=== PATIENT | male | born 1945 | race Caucasian/White ===

== ENCOUNTER 2017-02-26 20:40 | Emergency (ER) | payer MEDICARE, OTHER ==
--- NOTE | 2017-02-26 22:01 | RAD ---
Indication: Facial injury. CT of the facial bones was obtained in the axial plane. Sagittal and coronal reconstructed images were obtained. The mandible demonstrates no fracture. The visualized cervical spine is unremarkable. Zygomatic arch and pterygoid plates are intact without evidence of fracture. Mucosal thickening of the maxillary sinuses without evidence of fracture. Chronic sinusitis is noted. Ethmoid air cells are well aerated. Nasal arch is otherwise unremarkable. Pterygoid plates and orbits are intact. The temporomandibular joints demonstrates the mandibular condyles to be in the open position over the articular tubercle. IMPRESSION: No fracture of the facial bones is identified. The temporal mandibular joints are in correlation with jaw mobility is suggested. An open mouth position.
--- NOTE | 2017-02-26 22:04 | RAD ---
Indication: Facial laceration, headache. CT of the brain was performed without IV contrast. Ventricular structures are midline. No midline shift is noted. Central and cortical atrophy is noted. There is no evidence of intracranial mass or hemorrhage. No other high or low density lesions are identified. Mastoid air cells and paranasal sinuses are unremarkable. When compared to previous exam of October 27, 2012 no significant change is noted. IMPRESSION: Involutional changes are noted with no evidence of intracranial mass or hemorrhage.
--- NOTE | 2017-02-26 22:07 | RAD ---
Indication: Fall, neck injury. CT of the cervical spine was obtained in the axial plane. Sagittal and coronal reconstructed images were obtained. The skull base and neck shows no fracture. C1-C2 articulation demonstrates degenerative changes. No fracture of C1 or C2 is identified. At C2-C3 and C3-C4 there is some minimal disc degenerative disc disease at C3-C4. No fracture is identified. No central foraminal stenosis is noted. At C4-C5 spondylitic ridge flattens the thecal sac. No definite fracture is identified. At C5-C6 spondylitic ridge flattens the thecal sac. Bilateral uncovertebral joint hypertrophy narrows both foramen. No central or foraminal stenosis is noted. At C6-C7 disc space loss with degenerative disc disease is noted. No fracture is identified. At C7-T1 degenerative disc disease is noted. IMPRESSION: MULTILEVEL DEGENERATIVE DISC DISEASE IS NOTED. NO DEFINITE FRACTURE IS IDENTIFIED. EVALUATION OF THE LOWER CERVICAL VERTEBRA IS SOMEWHAT LIMITED DUE TO BODY HABITUS.
[2017-02-26 22:10] LABS: Hematocrit 39 % (42-52); Hemoglobin 13.2 g/dl (14.0-18.0); Mean Corpuscular HGB Conc 34 g/dl (31-36); Mean Corpuscular Hemoglobin 31 pg (27-31); Mean Corpuscular Volume 90 fL (80-94); Mean Platelet Volume 8 um3 (7.4-10.4); Red Blood Count 4.32 10^6/ul (4.0-5.4); Red Cell Distribution Width 14 % (10.5-15); White Blood Count 7.9 10^3/ul (3.5-10.8)
[2017-02-26 22:37] LABS: Albumin 3.2 g/dL (3.2-5.2); Calcium 9.6 mg/dL (8.6-10.3); EGFR African American 89.5 (>60); EGFR Non-African American 69.6 (>60); Globulin 3.4 g/dL (2-4); Potassium 4.4 mmol/L (3.5-5.0); Total Bilirubin 0.4 mg/dL (0.2-1.0); Total Protein 6.6 g/dL (6.4-8.9)
[2017-02-26 22:48] LABS: TSH (Thyroid Stimulating Horm) 4.1 mcIU/mL (0.34-5.60)
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
[2017-02-26 23:39] VITALS: BP 153/65
== END 2017-02-27 00:19 | disposition home or self-care (01) ==
LOC: ED 20:40
DX: S01.21XA Laceration without foreign body of nose, initial encounter (principal); Y09 Assault by unspecified means; Y92.129 Unspecified place in nursing home as the place of occurrence of the external cause; Y99.8 Other external cause status
CPT/HCPCS: 12011; 36415; 70450; 70486; 72125; 80053; 83605; 83735; 84443; 85025; 93005; 99284

== ENCOUNTER 2018-10-16 09:33 | Inpatient (IN) | payer MEDICARE, MEDICAID ==
[2018-10-16] MEDS ORDERED: NS 0.9% 1000 ML** 1,000 ML IV.FLUID IV ONE (09:45)
[2018-10-16] MEDS ORDERED: cefTRIAXone(*) 2 GM in NS 0.9% 100 ML* 100 ML IVPB ONE (09:59)
[2018-10-16] MEDS ORDERED: cefTRIAXone(*) 2 GM ADDV.VIAL IVPB ONE (10:06)
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
[2018-10-16 10:26] LABS: Hematocrit 35 % (42-52); Hemoglobin 11.3 g/dl (14.0-18.0); Mean Corpuscular HGB Conc 33 g/dl (31-36); Mean Corpuscular Hemoglobin 31 pg (27-31); Mean Corpuscular Volume 93 fL (80-94); Mean Platelet Volume 8.3 fL (7.4-10.4); Platelet Count 218 10^3/ul (150-450); Red Blood Count 3.72 10^6/ul (4.00-5.40); Red Cell Distribution Width 15 % (10.5-15); White Blood Count 14.8 10^3/ul (3.5-10.8)
[2018-10-16 10:42] LABS: Activated Partial Thrombo Time 25.3 seconds (26.0-36.3); INR 1.02 (0.77-1.02)
[2018-10-16 10:47] LABS: Troponin I 0.05 ng/mL (<0.04)
[2018-10-16 10:49] LABS: Albumin 3.1 g/dL (3.2-5.2); C Reactive Protein 89.52 mg/L (<8.01); Calcium 9.3 mg/dL (8.6-10.3); EGFR African American 23.1 (>60); EGFR Non-African American 19.1 (>60); Globulin 3.1 g/dL (2-4); Total Bilirubin 0.3 mg/dL (0.2-1.0); Total Protein 6.2 g/dL (6.4-8.9)
[2018-10-16 10:53] LABS: Potassium 6.3 mmol/L (3.5-5.0)
[2018-10-16 11:02] LABS: ABS Basophils 0.1 10^3/ul (0-0.2); ABS Eosinophils 0 10^3/ul (0-0.6); ABS Lymphocytes 1.2 10^3/ul (1.0-4.8); ABS Neutrophils 11.5 10^3/ul (1.5-7.7); ABS Nucleated RBC 0 10^3/ul; Eosinophil % 0.3 %; Lymphocyte % 8.2 %; Nucleated Red Blood Cells % 0
[2018-10-16] MEDS ORDERED: DOXYcycline IV* 100 MG in NS 0.9% 250 ML* 250 ML IVPB ONE (11:39)
[2018-10-16] MEDS ORDERED: Dextrose 50% Syringe 50 ML* 25 GM/50 ML SYRINGE IV PUSH ONE (11:51)
[2018-10-16] MEDS ORDERED: Insulin REGULAR(*) 1 UNITS UNIT IV PUSH ONE (11:51)
[2018-10-16] MEDS ORDERED: Patiromer POWDER* 8.4 GM PAK PO ONE ×2 (11:53→12:02)
[2018-10-16] MEDS ORDERED: NS 0.9% 250 ML* 250 ML ONE (11:57)
[2018-10-16] MEDS ORDERED: Benzonatate CAP* 100 MG PO PRN (11:59)
[2018-10-16] MEDS ORDERED: Ondansetron INJ* 2 MG/ML VIAL IV PRN (11:59)
[2018-10-16] MEDS ORDERED: Dextrose 50% Syringe 50 ML* 25 GM/50 ML SYRINGE ONE (12:02)
[2018-10-16] MEDS ORDERED: Insulin REGULAR(*) 1 UNITS UNIT ONE (12:02)
[2018-10-16] MEDS ORDERED: Bisacodyl SUPP* 10 MG SUPP PR PRN (12:03)
[2018-10-16] MEDS ORDERED: MELATONIN 5 MG PO PRN (12:03)
[2018-10-16] MEDS ORDERED: Albuterol/Ipratropium NEB.SOL* Albuterol 2.5 MG/Ipratropium 0.5 MG 3 ML INH PRN (12:20)
[2018-10-16 13:53] LABS: Troponin I 0.04 ng/mL (<0.04)
[2018-10-16] MEDS: Enoxaparin(*) 30 MG/0.3 ML SYR SUBCUT SCH (14:28)
[2018-10-16] MEDS: NS 0.9% 1000 ML** 1,000 ML IV SCH ×4 (14:31→23:07)
[2018-10-16 16:01] LABS: BUN/Creatinine Ratio 15.7 (8-20); Calcium 8.7 mg/dL (8.6-10.3); EGFR African American 30.2 (>60); Troponin I 0.03 ng/mL (<0.04)
[2018-10-16 16:02] LABS: Potassium 5.2 mmol/L (3.5-5.0)
[2018-10-16] MEDS: Acetaminophen TAB* 325 MG PO PRN (16:08)
[2018-10-16 17:11] LABS: Urine Appearance Cloudy; Urine Bacteria Absent (Absent); Urine Bilirubin Negative (Negative); Urine Blood 3+ (Negative); Urine Glucose 1+(50 mg/dL) (Negative); Urine Ketones Negative (Negative); Urine Nitrite Negative (Negative); Urine Protein 2+(100 mg/dL) (Negative); Urine Red Blood Cell 3+(>10/hpf) (Absent); Urine Specific Gravity 1.017 (1.010-1.030); Urine Squamous Epithelial Cell Present (Absent); Urine Urobilinogen Negative (Negative); Urine White Blood Cell 3+(>20/hpf) (Absent)
[2018-10-16 17:14] LABS: Urine Color Red
--- NOTE | 2018-10-16 17:47 | HP ---
CC: Shanna Sharif DO; [facility] * ADMISSION HISTORY AND PHYSICAL: DATE OF ADMISSION: 10/16/18 PRIMARY CARE PROVIDER: Shanna Sharif DO. MY ATTENDING WHILE IN THE HOSPITAL: Dr. Wilfrid Munoz.* (DICTATED BY CECILE DISLA) CHIEF COMPLAINT: Unresponsiveness. HISTORY OF PRESENT ILLNESS: Mr. Yee is a 73-year-old male, resident of [facility], who until 2 days ago was in his normal state of health when he began to yesterday call out more. He was sent to the emergency department for altered mental status. During that time, he was not making any urine and was unable to have a Kelly catheter placed. The bladder scan did not show a large amount of urinary retention and the patient was discharged back to [facility] due to his MOLST recommending limited medical intervention. Patient also had a large amount of blood in his urine at [facility] which was part of the reason he was sent to the hospital. Patient had also been noted per [facility] documentation to have been eating less for several days and at that time, he was diagnosed with upper respiratory infection. His oxygen saturation was good on room air. Patient on 10/16/18 was found to be unresponsive and sent back into the emergency department. In the emergency department, he was found to have a significantly altered lung exam with rhonchi throughout. Patient's blood pressure was low, though he was not tachycardic. Patient was requiring 4 L of oxygen initially, but was saturating well on this amount. Patient was still unable to have a Kelly catheter placed. Patient was given a fluid bolus and ceftriaxone. Patient then was able to wake up and become more oriented. Patient stated that he did not have any pain. No shortness of breath, chest pain, abdominal pain, or diarrhea. Patient states that his penis was sore from repeated urinary catheter placements. Patient's MOLST was discussed with his daughter and she said that they would like intervention. We were asked to evaluate the patient for admission to the hospital due to acute kidney injury, hypokalemia, and sepsis of unknown origin; likely urinary tract related. PAST MEDICAL HISTORY: Dementia, diabetes mellitus type 2; insulin dependent, CHF; unknown ejection fraction, hypertension, bipolar disorder, factor V Leiden with 2 PEs; on chronic anticoagulation, IVC filter in place, prostate cancer; status post chemotherapy. MEDICATIONS: As per the [facility] records: 1. Depakote 500 mg p.o. daily. 2. Tylenol 650 mg p.o. q.4 hours as needed. 3. Dulcolax 10 mg p.o. [place] daily as needed. 4. Bupropion 150 mg p.o. daily. 5. Rivaroxaban 20 mg p.o. q.p.m. 6. Vitamin D3 at 2000 units p.o. daily. 7. Micatin 1 application topical b.i.d., as needed. 8. Docusate 2 tablets p.o. daily as needed. 9. Risperdal 2 mg p.o. b.i.d. 10. Potassium chloride 20 mEq p.o. daily. 11. Nystatin 1 application topical b.i.d. 12. Magnesium hydroxide 30 mL p.o. daily as needed. 13. Metoprolol succinate 50 mg p.o. at bedtime. 14. Melatonin 5 mg p.o. at bedtime as needed. 15. Insulin glargine 12 units subcutaneous q.a.m. 16. Lactase 5000 units p.o. q.a.m. 17. Guaifenesin 600 mg p.o. b.i.d. as needed. 18. Hydrocortisone 1 application topical q.8 hours as needed. 19. Furosemide 40 mg p.o. daily. 20. Divalproex 75 mg p.o. b.i.d. 21. Lidocaine patch 1 application daily. 22. Selenium sulfide 1% topical on . 23. Tylenol 1000 mg p.o. b.i.d. as needed. 24. Pregabalin 25 mg p.o. at bedtime. ALLERGIES: Banana, TEGRETOL, ERYTHROMYCIN, GABAPENTIN, GEMFIBROZIL, lactose, LEVOFLOXACIN, MEMANTINE, TERAZOSIN, TOPIRAMATE. FAMILY HISTORY: From previous documentation, the patient's mother had dementia and diabetes. SOCIAL HISTORY: Patient previously denied alcohol, tobacco, or drug abuse. 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 Has daughters who are surrogate decision makers. REVIEW OF SYSTEMS: A 14-point review of systems was reviewed with the patient and though he is limited, they were all negative, except as above in the HPI. PHYSICAL EXAMINATION GENERAL: Patient is a 73-year-old male who appears stated age, sitting comfortably on bed, in no acute distress. VITAL SIGNS: At the time of evaluation, temperature 97.8, pulse rate 78, respiratory rate 16, oxygen saturation 100% on 4 L, blood pressure 140/100. HEENT: Head: Normocephalic, atraumatic. Sclerae anicteric. No conjunctival injection. Nasal mucosa moist. Oral mucosa moist. No oropharyngeal erythema, discharge, or exudate. NECK: Supple, nontender. No lymphadenopathy, no carotid bruits auscultated, no JVD. RESPIRATORY: Rhonchi heard throughout the lower bilateral lungs. Slight wheezes heard in the bilateral lower lobes. Patient unable to cooperate with egophony. CARDIAC: Regular rate and rhythm. No clicks, murmurs, gallops, or rubs. Pulses 2+ in the bilateral dorsalis pedis, posterior tibial and radial areas. Trace bilateral lower extremity edema noted. ABDOMEN: Soft, nontender, nondistended. Bowel sounds present, normoactive in all 4 quadrants. No hepatosplenomegaly. No abdominal bruits auscultated. No hepatojugular reflux. GENITOURINARY: No suprapubic or CVA tenderness. NEUROLOGIC: Cranial nerves II throughout XII intact. No focal deficits. Alert , oriented only to self. PSYCHIATRIC: Pleasant and cooperative, occasionally yelling out. SKIN: Clean, dry, and intact. No rash. DIAGNOSTIC STUDIES/LABORATORY DATA: White blood cell count 14.0, hemoglobin 11.3, platelet count 218, INR 1.02, APTT 25.3. Sodium 135, potassium 6.3, chloride 99, carbon dioxide 29, anion gap 7, BUN 45, creatinine 3.21, glucose 218, lactic acid 2.5, calcium 9.3, bilirubin 0.3, AST 14, ALT 6, alkaline phosphatase 55. Troponin I 0.05. CRP 89.52. Protein 6.2, albumin 3.1, globulin 3.1. Studies: Chest x-ray from 10/16/18 read as low lung volumes with bibasilar atelectasis versus consolidation. Electrocardiogram shows normal sinus rhythm, incomplete right bundle-branch block, possible peaked T waves in lead II consistent with previous exam, left axis deviation. QTc of 425, rate of 63. Abdomen and pelvic CT from 10/16/18 read as small bibasilar infiltrates consistent with atelectasis. Mild right hydronephrosis. No renal, ureteral or bladder calculi are seen. No chronic compression fractures of the dorsal lumbar vertebrae. IVC filter in place. Yakov CT from 10/16/18 read as diffuse involutional change, no acute intracranial pathology. ASSESSMENT AND PLAN: Impression: Mr. Yee is a 73-year-old male with past medical history significant for advanced dementia, diabetes mellitus type 2, history of congestive heart failure, pulmonary embolisms, and prostate cancer who presents to the emergency department obtunded, but responded in the emergency department to fluids and antibiotics. We were unable to get a Kelly catheter on this patient at this time. Patient will be admitted to the hospital for acute kidney injury and management of sepsis of presumed urological origin. 1. Sepsis. Patient met sepsis criteria on admission with elevated white blood cell count and low blood pressure. Patient did not have any tachycardia. Patient has presumed urinary source. Patient was given broad-spectrum antibiotic coverage to cover both urinary and respiratory pathogens with ceftriaxone and doxycycline. Patient was given normal saline bolus and his blood pressure resolved. 2. Elevated lactic acid. This will be repeated in 4 hours. Patient's family is not interested in vasopressors and patient will be admitted to for limited medical interventions. Sputum culture will attempt to be obtained, as will urine culture. Chest x-ray showed consolidation. Blood cultures are pending. 3. Acte kidney injury. Patient's creatinine went from his baseline around 1 to 3.21. It is unclear what the cause of this is. Patient does not appear to be retaining urine significantly, though they are unable to get a Kelly catheter. This patient has mild hydronephrosis. A Kelly catheter will be placed with Urology. Patient will be given fluids. Patient has been [facility] less in the [facility] and is likely dehydrated, though he does appear euvolemic on exam. We will repeat a BNP in 6 hours. 4. Hyperkalemia. The likely cause of this is obstruction versus prerenal acute kidney injury. Given patient is likely dehydrated, we will not treat with Lasix at this time. We will fluid expand, give insulin and glucose. Patient also is wheezing and will be given albuterol inhalers, but not a full dose given patient's elevated troponin. 5. Diabetes mellitus. Patient is on Lantus and sliding scale insulin at home. Patient was given insulin at this time. Patient will be started on sliding scale insulin and decrease dose of Lantus at home. 6. Congestive heart failure. Will use SWAT for patient's fluid status closely with strict input and outputs and daily weights. Patient does not appear to be overloaded now. 7. History of pulmonary embolism x2. Patient has an IVC filter. Patient will have his Xarelto held as it is not able to be renally dosed at his current renal function. 8. DVT prophylaxis. Patient will have Lovenox at renal doses. 9. Bipolar disorder. Continue Depakote and Risperdal when the time comes. Valproic acid level is pending. 10. Code status. Patient will be DNR/DNI. DISPOSITION: The patient is admitted to [address] [place] [address]. TIME SPENT: Approximately 75 minutes were spent on admission of this patient, 30% of which was spent [id number] with the patient, obtaining history and physical and discussing treatment plan. Plan was discussed with my attending, Dr. Wilfrid Munoz, and he is in agreement. CECILE DISLA [id number]/[facility] #: [id number] MTDMathew
[2018-10-16] MEDS ORDERED: NS 0.9% 1000 ML** 1,000 ML IV ONE ×2 (18:02→20:18)
[2018-10-16 18:17] LABS: Hematocrit 28 % (42-52); Hemoglobin 9.1 g/dl (14.0-18.0); Mean Corpuscular HGB Conc 33 g/dl (31-36); Mean Corpuscular Hemoglobin 31 pg (27-31); Mean Corpuscular Volume 93 fL (80-94); Mean Platelet Volume 8.4 fL (7.4-10.4); Platelet Count 161 10^3/ul (150-450); Red Blood Count 2.95 10^6/ul (4.00-5.40); Red Cell Distribution Width 14 % (10.5-15); White Blood Count 11.5 10^3/ul (3.5-10.8)
[2018-10-16 18:22] LABS: ABS Basophils 0.1 10^3/ul (0-0.2); ABS Eosinophils 0 10^3/ul (0-0.6); ABS Monocytes 1.7 10^3/ul (0-0.8); ABS Neutrophils 8.7 10^3/ul (1.5-7.7); ABS Nucleated RBC 0 10^3/ul; Eosinophil % 0.1 %; Lymphocyte % 9.1 %; Nucleated Red Blood Cells % 0
[2018-10-16 18:33] LABS: BUN/Creatinine Ratio 17.2 (8-20); Calcium 8.2 mg/dL (8.6-10.3); EGFR African American 31.7 (>60); EGFR Non-African American 26.2 (>60)
[2018-10-16 18:40] LABS: Potassium 5.3 mmol/L (3.5-5.0)
--- NOTE | 2018-10-16 19:37 | CONS ---
CONSULTATION NOTE: DATE OF CONSULT: 10/16/18. PROCEDURES: 1. Urethral dilation. 2. Attempt at placement of a urethral catheter. HISTORY OF PRESENT ILLNESS: I was asked by the emergency room and the hospitalist service to see Mr. Yee, a 73-year-old white male who is a resident at [facility] and who was brought into the emergency room because of weakness and poor food and liquid intake. I had seen Mr. Yee in the past with his last visit to my office about 5 years ago. He had history of prostate carcinoma which was treated with radiation therapy. I had last seen him in June 2013 when he was noted to have gross hematuria. At that time, he underwent a workup and his kidneys looked normal. 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 Bladder biopsies were benign. The patient had been managed [facility] the [facility] with on and off catheters. When he was brought into the emergency room today, he was noted to be in renal failure. He had a noncontrast CT of the abdomen and pelvis which showed mild left hydronephrosis but there were no calculi. The bladder was not distended but there was thickening of the bladder wall and there was suggestion of clots within the bladder. Attempt at placement of a Kelly catheter by the nursing staff in the emergency room was not successful and urology consultation was obtained. The patient has advanced dementia. He has also multiple medical problems outlined in his history and physical. On urological examination, his bladder did not feel distended. External genitalia were normal. He was demented and could not respond to questions. I tried to place a 16 Coude catheter but was not successful because of obstruction at the level of the posterior urethra. I tried to dilate the stricture starting with 12-Namibian stiff Coude tip catheters but that was not successful with the catheter coiling proximal to the stricture. I also tried to place a 12-Namibian Kelly catheter and also that was not successful. A bladder scan was performed and the bladder volume was about 100 cc. IMPRESSION: Tight urethral strictures, most likely secondary to radiation therapy for prostate carcinoma. PLAN: Ideally, the patient should be taken to the operating room for cystoscopy , internal urethrotomy and catheter placement. The patient; however, is in poor medical condition and is not a candidate for anesthesia, and his family, according to the hospitalist, does not want to proceed with any aggressive measures. The other option will be placement of a percutaneous suprapubic catheter by Interventional Radiology. It might not work if he has clots in his bladder as the clots will not drain through the small suprapubic catheter. I will await the feedback from the hospitalist service and from the family, if they want me to proceed with the cystoscopy in the operating room. In the interim, he will be managed conservatively. [id number]/[facility] #: [id number] SHAGUFTA
[2018-10-16] MEDS: Divalproex DR TAB(*) 250 MG PO SCH (20:22)
[2018-10-16] MEDS: guaiFENesin ER TAB 600 MG PO SCH (20:23)
[2018-10-16] MEDS: Metoprolol Succinate XL TAB* 25 MG PO SCH (20:23)
[2018-10-16] MEDS: risperiDONE TAB* 1 MG PO SCH (20:24)
--- NOTE | 2018-10-16 21:22 | PN ---
Hospitalist Progress Note Date of Service: 10/16/18 CAT Called at 1800 for hypotension. Fluid bolus ordered. Reaffirmed with daughter that no aggressive measures were desired. Specifically no vasopressors or NIPPV. Reaffirmed DNR/DNI. Palliative consult entered. Fluid bolus ordered. Continue Antibiotics pre family's wishes.
[2018-10-16] MEDS ORDERED: Atropine 1% (ORAL/SL)* 15 ML BTL SL PRN (21:55)
[2018-10-16] MEDS: DOXYcycline IV* 100 MG in NS 0.9% 250 ML* 250 ML IVPB SCH (23:02)
[2018-10-17] MEDS: NS 0.9% 1000 ML** 1,000 ML IV SCH ×2 (03:10→05:19)
[2018-10-17 06:08] LABS: ABS Basophils 0.1 10^3/ul (0-0.2); ABS Eosinophils 0.1 10^3/ul (0-0.6); ABS Lymphocytes 1.4 10^3/ul (1.0-4.8); ABS Monocytes 1.4 10^3/ul (0-0.8); ABS Neutrophils 6.9 10^3/ul (1.5-7.7); ABS Nucleated RBC 0 10^3/ul; Eosinophil % 0.9 %; Hematocrit 30 % (42-52); Hemoglobin 9.9 g/dl (14.0-18.0); Mean Corpuscular HGB Conc 33 g/dl (31-36); Mean Corpuscular Hemoglobin 32 pg (27-31); Mean Corpuscular Volume 95 fL (80-94); Mean Platelet Volume 8.2 fL (7.4-10.4); Nucleated Red Blood Cells % 0.1; Platelet Count 161 10^3/ul (150-450); Red Blood Count 3.14 10^6/ul (4.00-5.40); Red Cell Distribution Width 15 % (10.5-15); White Blood Count 9.8 10^3/ul (3.5-10.8)
[2018-10-17 06:28] LABS: BUN/Creatinine Ratio 19.4 (8-20); Calcium 8.5 mg/dL (8.6-10.3); EGFR African American 49.7 (>60); EGFR Non-African American 41.1 (>60); Magnesium 1.8 mg/dL (1.9-2.7); Potassium 4.9 mmol/L (3.5-5.0)
[2018-10-17] MEDS: guaiFENesin ER TAB 600 MG PO SCH ×2 (10:20→20:02)
[2018-10-17] MEDS: Divalproex DR TAB(*) 250 MG PO SCH ×2 (10:20→20:02)
[2018-10-17] MEDS: CMCS:Lactase Enzyme (NF) 3,000 UNIT TAB PO SCH (10:20)
[2018-10-17] MEDS: risperiDONE TAB* 1 MG PO SCH ×2 (10:21→20:03)
[2018-10-17] MEDS: Divalproex DR TAB(*) 500 MG PO SCH (10:21)
[2018-10-17] MEDS: Insulin GLARGINE(*) 1 UNITS UNIT SUBCUT SCH (10:56)
[2018-10-17] MEDS: Acetaminophen TAB* 325 MG PO PRN (11:03)
[2018-10-17] MEDS ORDERED: Magnesium Sulfate 2 GM IV* 2 GM/50 ML BAG IVPB ONE (11:09)
[2018-10-17] MEDS ORDERED: NS 0.9% 1000 ML** 1,000 ML IV SCH (11:12)
--- NOTE | 2018-10-17 11:21 | CONSULT ---
Palliative / Hospice Consult Ordering Provider: Tahir Quiros - PCP [facility] - Subjective Code Status: DNR Advance Directives Location: In Chart MOLST Part A Completed: Yes - on chart MOLST Part E Completed:: Yes - on chart - History or Present Illness History or Present Illness: 73 yo male resident of [facility]() with severe dementia was found to be unresponsive and sent to ER. 2 days earlier he was sent to ER with altered mental status, decreased appetite diagnosed with URI he returned to . Currently he has acute renal injury and sepsis work up. They were unable to insert a villa because of strictures secondary to radiation therapy for his prostate cancer. 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 His daughters are his HCP. CXR shows atelectasis vs consolidation, EXG ST depression, abd ct scan shows IVC filter, enlarged prostate and L hydronephrosis and chronic compression fracture. CT brain no acute pathology, H/H 9.1, 42/2.44 egfr 26.2, Ca+2 8.2, CRP 89.52, tprot 6.2, alb 3.1 lactic acid 2.4. He has lived at since 2012 and if he is not comfort care here family would like him to go back to with hospice. Lab Values: Abnormal Lab Results 10/16/18 10/16/18 10/16/18 10:15 10:15 10:15 WBC 14.8 H RBC 3.72 L Hgb 11.3 L Hct 35 L MCV 93 MCH 31 MCHC 33 RDW 15 Plt Count 218 MPV 8.3 Neut % (Auto) 77.5 Lymph % (Auto) 8.2 [place] % (Auto) 13.5 Eos % (Auto) 0.3 Baso % (Auto) 0.5 Absolute Neuts (auto) 11.5 H Absolute Lymphs (auto) 1.2 Absolute Monos (auto) 2.0 H Absolute Eos (auto) 0 Absolute Basos (auto) 0.1 Absolute Nucleated RBC 0 Nucleated RBC % 0 INR (Anticoag Therapy) 1.02 APTT 25.3 L Sodium 135 Potassium 6.3 H* Chloride 99 L Carbon Dioxide 29 Anion Gap 7 BUN 45 H Creatinine 3.21 H Est GFR ( Amer) 23.1 Est GFR (Non-Af Amer) 19.1 BUN/Creatinine Ratio 14.0 Glucose 218 H POC Glucose (mg/dL) Lactic Acid Calcium 9.3 Magnesium Total Bilirubin 0.30 AST 14 ALT 6 L Alkaline Phosphatase 55 Troponin I 0.05 H* C-Reactive Protein 89.52 H Total Protein 6.2 L Albumin 3.1 L Globulin 3.1 Albumin/Globulin Ratio 1.0 Urine Color Urine Appearance Urine pH Ur Specific Secor Urine Protein Urine Ketones Urine Blood Urine Nitrate Urine Bilirubin Urine Urobilinogen Ur Leukocyte Esterase Urine WBC (Auto) Urine RBC (Auto) Ur Squamous Epith Cells Urine Bacteria Urine Glucose Urine Ascorbic Acid Valproic Acid Cancelled 10/16/18 10/16/18 10/16/18 10:15 13:16 14:10 WBC RBC Hgb Hct MCV MCH MCHC RDW Plt Count MPV Neut % (Auto) Lymph % (Auto) [place] % (Auto) Eos % (Auto) Baso % (Auto) Absolute Neuts (auto) Absolute Lymphs (auto) Absolute Monos (auto) Absolute Eos (auto) Absolute Basos (auto) Absolute Nucleated RBC Nucleated RBC % INR (Anticoag Therapy) APTT Sodium Potassium Chloride Carbon Dioxide Anion Gap BUN Creatinine Est GFR ( Amer) Est GFR (Non-Af Amer) BUN/Creatinine Ratio Glucose POC Glucose (mg/dL) 174 H Lactic Acid 2.5 H* Calcium Magnesium Total Bilirubin AST ALT Alkaline Phosphatase Troponin I 0.04 H* C-Reactive Protein Total Protein Albumin Globulin Albumin/Globulin Ratio Urine Color Urine Appearance Urine pH Ur Specific Secor Urine Protein Urine Ketones Urine Blood Urine Nitrate Urine Bilirubin Urine Urobilinogen Ur Leukocyte Esterase Urine WBC (Auto) Urine RBC (Auto) Ur Squamous Epith Cells Urine Bacteria Urine Glucose Urine Ascorbic Acid Valproic Acid 53.0 10/16/18 10/16/18 10/16/18 14:57 14:58 16:11 WBC RBC Hgb Hct MCV MCH MCHC RDW Plt Count MPV Neut % (Auto) Lymph % (Auto) [place] % (Auto) Eos % (Auto) Baso % (Auto) Absolute Neuts (auto) Absolute Lymphs (auto) Absolute Monos (auto) Absolute Eos (auto) Absolute Basos (auto) Absolute Nucleated RBC Nucleated RBC % INR (Anticoag Therapy) APTT Sodium 138 Potassium 5.2 H Chloride 106 Carbon Dioxide 25 Anion Gap 7 BUN 40 H Creatinine 2.54 H Est GFR ( Amer) 30.2 Est GFR (Non-Af Amer) 25.0 BUN/Creatinine Ratio 15.7 Glucose 146 H POC Glucose (mg/dL) 216 H Lactic Acid 2.4 H* Calcium 8.7 Magnesium Total Bilirubin AST ALT Alkaline Phosphatase Troponin I 0.03 C-Reactive Protein Total Protein Albumin Globulin Albumin/Globulin Ratio Urine Color Urine Appearance Urine pH Ur Specific Secor Urine Protein Urine Ketones Urine Blood Urine Nitrate Urine Bilirubin Urine Urobilinogen Ur Leukocyte Esterase Urine WBC (Auto) Urine RBC (Auto) Ur Squamous Epith Cells Urine Bacteria Urine Glucose Urine Ascorbic Acid Valproic Acid 10/16/18 10/16/18 10/16/18 16:42 17:50 18:12 WBC 11.5 H RBC 2.95 L Hgb 9.1 L Hct 28 L MCV 93 MCH 31 MCHC 33 RDW 14 Plt Count 161 MPV 8.4 Neut % (Auto) 75.5 Lymph % (Auto) 9.1 [place] % (Auto) 14.6 Eos % (Auto) 0.1 Baso % (Auto) 0.7 Absolute Neuts (auto) 8.7 H Absolute Lymphs (auto) 1.0 Absolute Monos (auto) 1.7 H Absolute Eos (auto) 0 Absolute Basos (auto) 0.1 Absolute Nucleated RBC 0 Nucleated RBC % 0 INR (Anticoag Therapy) APTT Sodium Potassium Chloride Carbon Dioxide Anion Gap BUN Creatinine Est GFR ( Amer) Est GFR (Non-Af Amer) BUN/Creatinine Ratio Glucose POC Glucose (mg/dL) 265 H Lactic Acid Calcium Magnesium Total Bilirubin AST ALT Alkaline Phosphatase Troponin I C-Reactive Protein Total Protein Albumin Globulin Albumin/Globulin Ratio Urine Color Red A Urine Appearance Cloudy Urine pH 5.0 Ur Specific Secor 1.017 Urine Protein 2+(100 mg/dl) A Urine Ketones Negative Urine Blood 3+ A Urine Nitrate Negative Urine Bilirubin Negative Urine Urobilinogen Negative Ur Leukocyte Esterase 2+ A Urine WBC (Auto) 3+(>20/hpf) A Urine RBC (Auto) 3+(>10/hpf) A Ur Squamous Epith Cells Present A Urine Bacteria Absent Urine Glucose 1+(50 mg/dl) A Urine Ascorbic Acid * A Valproic Acid 10/16/18 10/16/18 10/17/18 18:12 20:03 05:59 WBC 9.8 RBC 3.14 L Hgb 9.9 L Hct 30 L MCV 95 H MCH 32 H MCHC 33 RDW 15 Plt Count 161 MPV 8.2 Neut % (Auto) 70.1 Lymph % (Auto) 14.0 [place] % (Auto) 14.2 Eos % (Auto) 0.9 Baso % (Auto) 0.8 Absolute Neuts (auto) 6.9 Absolute Lymphs (auto) 1.4 Absolute Monos (auto) 1.4 H Absolute Eos (auto) 0.1 Absolute Basos (auto) 0.1 Absolute Nucleated RBC 0 Nucleated RBC % 0.1 INR (Anticoag Therapy) APTT Sodium 137 Potassium 5.3 H Chloride 107 Carbon Dioxide 23 Anion Gap 7 BUN 42 H Creatinine 2.44 H Est GFR ( Amer) 31.7 Est GFR (Non-Af Amer) 26.2 BUN/Creatinine Ratio 17.2 Glucose 229 H POC Glucose (mg/dL) 172 H Lactic Acid Calcium 8.2 L Magnesium Total Bilirubin AST ALT Alkaline Phosphatase Troponin I C-Reactive Protein Total Protein Albumin Globulin Albumin/Globulin Ratio Urine Color Urine Appearance Urine pH Ur Specific Secor Urine Protein Urine Ketones Urine Blood Urine Nitrate Urine Bilirubin Urine Urobilinogen Ur Leukocyte Esterase Urine WBC (Auto) Urine RBC (Auto) Ur Squamous Epith Cells Urine Bacteria Urine Glucose Urine Ascorbic Acid Valproic Acid 10/17/18 10/17/18 05:59 10:16 WBC RBC Hgb Hct MCV MCH MCHC RDW Plt Count MPV Neut % (Auto) Lymph % (Auto) [place] % (Auto) Eos % (Auto) Baso % (Auto) Absolute Neuts (auto) Absolute Lymphs (auto) Absolute Monos (auto) Absolute Eos (auto) Absolute Basos (auto) Absolute Nucleated RBC Nucleated RBC % INR (Anticoag Therapy) APTT Sodium 140 Potassium 4.9 Chloride 110 Carbon Dioxide 27 Anion Gap 3 BUN 32 H Creatinine 1.65 H Est GFR ( Amer) 49.7 Est GFR (Non-Af Amer) 41.1 BUN/Creatinine Ratio 19.4 Glucose 115 H POC Glucose (mg/dL) 196 H Lactic Acid Calcium 8.5 L Magnesium 1.8 L Total Bilirubin AST ALT Alkaline Phosphatase Troponin I C-Reactive Protein Total Protein Albumin Globulin Albumin/Globulin Ratio Urine Color Urine Appearance Urine pH Ur Specific Secor Urine Protein Urine Ketones Urine Blood Urine Nitrate Urine Bilirubin Urine Urobilinogen Ur Leukocyte Esterase Urine WBC (Auto) Urine RBC (Auto) Ur Squamous Epith Cells Urine Bacteria Urine Glucose Urine Ascorbic Acid Valproic Acid Laboratory Last Values WBC 9.8 10^3/ul (3.5-10.8) 10/17/18 05:59 RBC 3.14 10^6/ul (4.00-5.40) L 10/17/18 05:59 Hgb 9.9 g/dl (14.0-18.0) L 10/17/18 05:59 Hct 30 % (42-52) L 10/17/18 05:59 MCV 95 fL (80-94) H 10/17/18 05:59 MCH 32 pg (27-31) H 10/17/18 05:59 MCHC 33 g/dl (31-36) 10/17/18 05:59 RDW 15 % (10.5-15) 10/17/18 05:59 Plt Count 161 10^3/ul (150-450) 10/17/18 05:59 MPV 8.2 fL (7.4-10.4) 10/17/18 05:59 Neut % (Auto) 70.1 % 10/17/18 05:59 Lymph % (Auto) 14.0 % 10/17/18 05:59 Marinette % (Auto) 14.2 % 10/17/18 05:59 Eos % (Auto) 0.9 % 10/17/18 05:59 Baso % (Auto) 0.8 % 10/17/18 05:59 Absolute Neuts (auto) 6.9 10^3/ul (1.5-7.7) 10/17/18 05:59 Absolute Lymphs (auto) 1.4 10^3/ul (1.0-4.8) 10/17/18 05:59 Absolute Monos (auto) 1.4 10^3/ul (0-0.8) H 10/17/18 05:59 Absolute Eos (auto) 0.1 10^3/ul (0-0.6) 10/17/18 05:59 Absolute Basos (auto) 0.1 10^3/ul (0-0.2) 10/17/18 05:59 Absolute Nucleated RBC 0 10^3/ul 10/17/18 05:59 Nucleated RBC % 0.1 10/17/18 05:59 INR (Anticoag Therapy) 1.02 (0.77-1.02) 10/16/18 10:15 APTT 25.3 seconds (26.0-36.3) L 10/16/18 10:15 Sodium 140 mmol/L (135-145) 10/17/18 05:59 Potassium 4.9 mmol/L (3.5-5.0) 10/17/18 05:59 Chloride 110 mmol/L (101-111) 10/17/18 05:59 Carbon Dioxide 27 mmol/L (22-32) 10/17/18 05:59 Anion Gap 3 mmol/L (2-11) 10/17/18 05:59 BUN 32 mg/dL (6-24) H 10/17/18 05:59 Creatinine 1.65 mg/dL (0.67-1.17) H 10/17/18 05:59 Est GFR ( Amer) 49.7 (>60) 10/17/18 05:59 Est GFR (Non-Af Amer) 41.1 (>60) 10/17/18 05:59 BUN/Creatinine Ratio 19.4 (8-20) 10/17/18 05:59 Glucose 115 mg/dL (70-100) H 10/17/18 05:59 POC Glucose (mg/dL) 196 mg/dL (70-100) H 10/17/18 10:16 Lactic Acid 2.4 mmol/L (0.5-2.0) H* 10/16/18 14:57 Calcium 8.5 mg/dL (8.6-10.3) L 10/17/18 05:59 Magnesium 1.8 mg/dL (1.9-2.7) L 10/17/18 05:59 Total Bilirubin 0.30 mg/dL (0.2-1.0) 10/16/18 10:15 AST 14 U/L (13-39) 10/16/18 10:15 ALT 6 U/L (7-52) L 10/16/18 10:15 Alkaline Phosphatase 55 U/L (34-104) 10/16/18 10:15 Troponin I 0.03 ng/mL (<0.04) 10/16/18 14:58 C-Reactive Protein 89.52 mg/L (<8.01) H 10/16/18 10:15 Total Protein 6.2 g/dL (6.4-8.9) L 10/16/18 10:15 Albumin 3.1 g/dL (3.2-5.2) L 10/16/18 10:15 Globulin 3.1 g/dL (2-4) 10/16/18 10:15 Albumin/Globulin Ratio 1.0 (1-3) 10/16/18 10:15 Urine Color Red A 10/16/18 16:42 Urine Appearance Cloudy 10/16/18 16:42 Urine pH 5.0 (5-9) 10/16/18 16:42 Ur Specific Secor 1.017 (1.010-1.030) 10/16/18 16:42 Urine Protein 2+(100 mg/dl) (Negative) A 10/16/18 16:42 Urine Ketones Negative (Negative) 10/16/18 16:42 Urine Blood 3+ (Negative) A 10/16/18 16:42 Urine Nitrate Negative (Negative) 10/16/18 16:42 Urine Bilirubin Negative (Negative) 10/16/18 16:42 Urine Urobilinogen Negative (Negative) 10/16/18 16:42 Ur Leukocyte Esterase 2+ (Negative) A 10/16/18 16:42 Urine WBC (Auto) 3+(>20/hpf) (Absent) A 10/16/18 16:42 Urine RBC (Auto) 3+(>10/hpf) (Absent) A 10/16/18 16:42 Ur Squamous Epith Cells Present (Absent) A 10/16/18 16:42 Urine Bacteria Absent (Absent) 10/16/18 16:42 Urine Glucose 1+(50 mg/dl) (Negative) A 10/16/18 16:42 Urine Ascorbic Acid * (Negative) A 10/16/18 16:42 Valproic Acid 53.0 mcg/mL (50-100) 10/16/18 13:16 - Objective Active Medications: Acetaminophen (Tylenol Tab*) 650 mg PO Q6H PRN PRN Reason: FEVER/PAIN Last Admin: 10/16/18 16:08 Dose: 650 mg Albuterol/Ipratropium (Duoneb (Albuterol 2.5 Mg/Ipratropium 0.5 Mg)) 1 neb INH Q6H PRN PRN Reason: SOB/WHEEZING Atropine Sulfate (Atropine 1% (Oral/Sl)*) 2 drop SL Q2H PRN PRN Reason: excess oral secretions Last Admin: 10/16/18 22:15 Dose: 2 drop Benzonatate (Tessalon Cap*) 100 mg PO BID PRN PRN Reason: COUGH Bisacodyl (Dulcolax Supp*) 10 mg MA DAILY PRN PRN Reason: CONSTIPATION Bupropion HCl (Wellbutrin Xl *) 150 mg PO DAILY [facility] Divalproex Sodium (Depakote Dr Tab(*)) 750 mg PO BID [facility] Last Admin: 10/17/18 10:20 Dose: 750 mg Divalproex Sodium (Depakote Dr Tab(*)) 500 mg PO DAILY [facility] Last Admin: 10/17/18 10:21 Dose: 500 mg Enoxaparin Sodium (Lovenox(*)) 30 mg SUBCUT Q24H [facility] Last Admin: 10/16/18 14:28 Dose: 30 mg Guaifenesin (Mucinex*) 1,200 mg PO BID [facility] Last Admin: 10/17/18 10:20 Dose: 1,200 mg Doxycycline Hyclate 100 mg/ (Sodium Chloride) 250 mls @ 250 mls/hr IVPB Q12H [facility] Last Admin: 10/16/18 23:02 Dose: 250 mls/hr Ceftriaxone Sodium 1 gm/ (Sodium Chloride) 50 mls @ 200 mls/hr IVPB Q24H [facility] Sodium Chloride (Ns 0.9% 1000 Ml) 1,000 mls @ 100 mls/hr IV PER RATE [facility] Last Admin: 10/17/18 05:19 Dose: 100 mls/hr Insulin Glargine (Lantus(*)) 30 units SUBCUT QAM [facility] Last Admin: 10/17/18 10:56 Dose: 30 units Lactase (Lactaid Fast Act (Nf)) 9,000 unit PO DAILY WITH MEAL [facility]; Protocol Last Admin: 10/17/18 10:20 Dose: 9,000 unit Melatonin (Melatonin) 3 mg PO BEDTIME PRN PRN Reason: INSOMNIA Metoprolol Succinate (Toprol Xl Tab*) 25 mg PO BEDTIME [facility] Last Admin: 10/16/18 20:23 Dose: Not Given Ondansetron HCl (Zofran Inj*) 4 mg IV Q6H PRN PRN Reason: NAUSEA Risperidone (Risperdal*) 1 mg PO BID [place] Last Admin: 10/17/18 10:21 Dose: 1 mg Vital Signs: Vital Signs: Temp Pulse Resp BP Pulse Ox 97.5 F 66 18 130/62 100 10/17/18 07:34 10/17/18 07:34 10/17/18 07:34 10/17/18 07:34 10/17/18 07:34 Patient Weight: Weight 129.501 kg Intake and Output: Intake & Output 10/15/18 10/16/18 10/17/18 10/18/18 06:59 06:59 06:59 06:59 Intake Total 6478 360 Output Total 0 Balance 6478 360 Weight 129.501 kg Intake: IV Fluids 6378 NS (0.9%) 2608 Oral 100 360 Output: Urine 0 ADLs: Meal Record Start: 10/16/18 12: 48 Freq: DAILY@0900,1400,1800 Status: Active Protocol: Created 10/16/18 12:48 System (Rec: 10/16/18 12:48 System [id number]) Document 10/16/18 14:00 [id number] (Rec: 10/16/18 21:30 [id number]) Document 10/16/18 18:00 [id number] (Rec: 10/16/18 21:30 [id number]) Document 10/17/18 09:00 [id number] (Rec: 10/17/18 09:21 [id number]) Intake and Output Start: 10/16/18 09: 43 Freq: Status: Active Protocol: Created 10/16/18 09:43 System (Rec: 10/16/18 09:43 System [id number]) Intake and Output Start: 10/16/18 12: 48 Freq: DAILY@0600,1400,2200 Status: Active Protocol: Created 10/16/18 12:48 System (Rec: 10/16/18 12:48 System [email or web address]) Document 10/16/18 21:31 [id number] (Rec: 10/16/18 21:32 [id number]) Document 10/17/18 06:00 [id number] (Rec: 10/17/18 06:34 [id number]) Neck: NL Appearance and Movements; NL JVP Cardiovascular: NL Sounds; No Murmurs; No JVD Respiratory: - - not taking deep breathes, upper respiratory noise Abdominal: NL Sounds; No Tenderness; No Distention Extremities: - - edema and bronze discoloration of the legs bilaterally - Assessment Assessment: 73 yo male with severe dementia admitted for sepsis and acute renal injury eligible for hospice - Plan Consult Plan (MU): Hospice Plan: Spoke with pt, daughter, brother and granddaughter. The daughter is pts HCP because pt can not participate due to his dementia. Pt has a MOLST on chart DNR/ DNI. Family has expressed that pt wouldn't want to live like this and he wants to join his who has proceeded him in . They are deciding between comfort care or returning to [facility]() with hospice evaluation. He appears to be more stable than last night when admitted. I spoke with them about hospice and what it can offer him and them. If he goes back to and gets ill again the hospice nurse will be able to help him so he won't have to go back to the hospital which the family agreed would be beneficial. Pt is eligible for hospice based on his severe dementia FAST scale 7, prostate ca & it 's complications of strictures secondary to radiation therapy, acute renal injury, factor V deficiency, CHF, HTN & type 2 diabetes. KPS 30%, PPS30% - Time On Unit Date of Evaluation: 10/17/18 Hospice Consult Time in: 10:30 Hospice Consult Time Out: 11:30 Hospice Consult Time Total: 60 > 50% of Time Spend In Counseling or Coordinating Care: Yes
[2018-10-17] MEDS ORDERED: Senna TAB PO PRN (11:22)
[2018-10-17] MEDS ORDERED: Magnesium Hydroxide LIQ* 30 ML UDC PO PRN (11:22)
[2018-10-17] MEDS ORDERED: Docusate CAP* 100 MG PO PRN (11:29)
[2018-10-17] MEDS: DOXYcycline IV* 100 MG in NS 0.9% 250 ML* 250 ML IVPB SCH ×2 (12:18→23:20)
[2018-10-17] MEDS: BuPROPion XL* 150 MG TAB.XL PO SCH (12:26)
[2018-10-17] MEDS: cefTRIAXone(*) 1 GM in NS 0.9% 50 ML* 50 ML IVPB SCH (14:21)
[2018-10-17] MEDS: Enoxaparin(*) 30 MG/0.3 ML SYR SUBCUT SCH (14:22)
--- NOTE | 2018-10-17 16:16 | PN ---
Subjective Date of Service: 10/17/18 Interval History: Patient more alert today. Complains only for back pain. Denies F/C, N/V, abdominal pain, dysuria, CP, SOB, or other pain. Discussed progress with family who would like to engage hospice services upon patient's likely return to [facility]. Family History: Unchanged from Admission Social History: Unchanged from Admission Past Medical History: Unchanged from Admission Objective Active Medications: Acetaminophen (Tylenol Tab*) 650 mg PO Q6H PRN PRN Reason: FEVER/PAIN Last Admin: 10/17/18 11:03 Dose: 650 mg Albuterol/Ipratropium (Duoneb (Albuterol 2.5 Mg/Ipratropium 0.5 Mg)) 1 neb INH Q6H PRN PRN Reason: SOB/WHEEZING Atropine Sulfate (Atropine 1% (Oral/Sl)*) 2 drop SL Q2H PRN PRN Reason: excess oral secretions Last Admin: 10/16/18 22:15 Dose: 2 drop Benzonatate (Tessalon Cap*) 100 mg PO BID PRN PRN Reason: COUGH Bisacodyl (Dulcolax Supp*) 10 mg HI DAILY PRN PRN Reason: CONSTIPATION Bupropion HCl (Wellbutrin Xl *) 150 mg PO DAILY [facility] Last Admin: 10/17/18 12:26 Dose: 150 mg Divalproex Sodium (Depakote Dr Tab(*)) 750 mg PO BID [facility] Last Admin: 10/17/18 10:20 Dose: 750 mg Divalproex Sodium (Depakote Dr Tab(*)) 500 mg PO DAILY [facility] Last Admin: 10/17/18 10:21 Dose: 500 mg Docusate Sodium (Colace Cap*) 100 mg PO DAILY PRN PRN Reason: CONSTIPATION Enoxaparin Sodium (Lovenox(*)) 30 mg SUBCUT Q24H [facility] Last Admin: 10/17/18 14:22 Dose: 30 mg Guaifenesin (Mucinex*) 1,200 mg PO BID [facility] Last Admin: 10/17/18 10:20 Dose: 1,200 mg Doxycycline Hyclate 100 mg/ (Sodium Chloride) 250 mls @ 250 mls/hr IVPB Q12H [facility] Last Admin: 10/17/18 12:18 Dose: 250 mls/hr Ceftriaxone Sodium 1 gm/ (Sodium Chloride) 50 mls @ 200 mls/hr IVPB Q24H [facility] Last Admin: 10/17/18 14:21 Dose: 200 mls/hr Insulin Glargine (Lantus(*)) 30 units SUBCUT QAM [facility] Last Admin: 10/17/18 10:56 Dose: 30 units Lactase (Lactaid Fast Act (Nf)) 9,000 unit PO DAILY WITH MEAL [facility]; Protocol Last Admin: 10/17/18 10:20 Dose: 9,000 unit Magnesium Hydroxide (Milk Of Magnpalmer Liq*) 30 ml PO DAILY PRN PRN Reason: CONSTIPATION Melatonin (Melatonin) 3 mg PO BEDTIME PRN PRN Reason: INSOMNIA Metoprolol Succinate (Toprol Xl Tab*) 25 mg PO BEDTIME [facility] Last Admin: 10/16/18 20:23 Dose: Not Given Ondansetron HCl (Zofran Inj*) 4 mg IV Q6H PRN PRN Reason: NAUSEA Pregabalin (Lyrica Cap(*)) 25 mg PO BEDTIME [facility] Risperidone (Risperdal*) 1 mg PO BID [facility] Last Admin: 10/17/18 10:21 Dose: 1 mg Senna (Senokot Tab*) 2 tab PO DAILY PRN PRN Reason: CONSTIPATION Oxygen Devices in Use Now: Nasal Cannula Appearance: Patient is a 73yo male who appears stated age and is sitting in the bed in [facility]. Eyes: No Scleral Icterus, PERRLA Ears/Nose/Mouth/Throat: NL Teeth, Lips, Gums, Clear Oropharnyx, Mucous Membranes Moist Neck: NL Appearance and Movements; NL JVP, Trachea Midline Respiratory: Symmetrical Chest Expansion and Respiratory Effort, Clear to Auscultation Cardiovascular: NL Sounds; No Murmurs; No JVD, RRR, - - Widespread edema. Abdominal: NL Sounds; No Tenderness; No Distention, No Hepatosplenomegaly Lymphatic: No Cervical Adenopathy Extremities: No Clubbing, Cyanosis Skin: No Rash or Ulcers, No Nodules or Sclerosis Neurological: - - CN II-XII intact. Alert only to self. Result Diagrams: 10/17/18 05:59 10/17/18 05:59 Microbiology and Other Data: Microbiology 10/16/18 10:15 Aerobic Blood Culture - Preliminary Blood Venous No Growth Day 1 Anaerobic Blood Culture - Preliminary No Growth Day 1 10/16/18 10:07 Aerobic Blood Culture - Preliminary Blood Venous No Growth Day 1 Anaerobic Blood Culture - Preliminary No Growth Day 1 10/16/18 16:42 Legionella Urinary Antigen - Final Urine Negative Legionella Antigen Streptococcus pneumoniae Ag Screen - Final Negative S. pneumo Antigen 10/16/18 12:16 Nasal Screen MRSA (PCR) - Final Nasal Mrsa Not Detected Assess/Plan/Problems-Billing Assessment: Patient is a 73yo male with a PMH for Advanced Dementia, CHF, DM II, Prostate Cancer, History of PE due to factor 5 leiden who is admitted with ARPAN and hyperkalemia with sepsis of likely urinary source who is improving with fluids and antibiotics. - Patient Problems (1) ARPAN (acute kidney injury) Current Visit: Yes Status: Acute Code(s): N17.9 - ACUTE KIDNEY FAILURE, UNSPECIFIED SNOMED Code(s): 11326800 Comment: - Likely due to dehydration, possible urinary obstruction, and possibly sepsis. - Improving with fluids, nearing baseline - Stop fluids and continue to monitor with PO intake. - Hyperkalemia resolved. (2) UTI (urinary tract infection) Current Visit: Yes Status: Acute Comment: - Urine Culture pending, will treat empirically based on UA and symptoms. - Likely cause of Hematuria with anticoagulation, resume anticoagulation when off antibiotics. (3) CHF (congestive heart failure) Current Visit: Yes Status: Acute Code(s): I50.9 - HEART FAILURE, UNSPECIFIED SNOMED Code(s): 95135189 Comment: - Fluid overloaded on exam. - No abnormalities in lung exam - Resume lasix tomorrow tomorrow if cret continues to improve - Continue to hold antihypertensives at this time. (4) DM II (diabetes mellitus, type II), controlled Current Visit: Yes Status: Acute Code(s): E11.9 - TYPE 2 DIABETES MELLITUS WITHOUT COMPLICATIONS SNOMED Code(s): 22786349 Comment: - Moderate control, continue SSI and Lantus with ACHS FSBG. (5) Factor 5 Leiden mutation, heterozygous Current Visit: Yes Status: Acute Code(s): D68.51 - ACTIVATED PROTEIN C RESISTANCE SNOMED Code(s): 264426518 Comment: - History 2 PEs, IVC filter in place - Resume anticoagulation with resolution of hematuria. (6) DVT prophylaxis Current Visit: Yes Status: Acute Code(s): DUZ7741 - SNOMED Code(s): 518919929 Comment: - Renally dosed Lovenox. - Resume Xarelto when able. (7) DNR (do not resuscitate) Current Visit: Yes Status: Acute Comment: - DNR/ DNI - Will likely go back to [facility] with Hospice Sign-On. Status and Disposition: Inpatient, Likely D/C back to [facility] Tomorrow.
[2018-10-17] MEDS: Melatonin 3 MG TAB PO PRN (20:02)
[2018-10-17] MEDS: Pregabalin CAP(*) 25 MG PO SCH (20:03)
[2018-10-17] MEDS: Metoprolol Succinate XL TAB* 25 MG PO SCH (20:03)
[2018-10-18 07:04] LABS: ABS Basophils 0 10^3/ul (0-0.2); ABS Eosinophils 0.2 10^3/ul (0-0.6); ABS Lymphocytes 1.5 10^3/ul (1.0-4.8); ABS Monocytes 0.8 10^3/ul (0-0.8); ABS Neutrophils 3.6 10^3/ul (1.5-7.7); ABS Nucleated RBC 0 10^3/ul; Eosinophil % 3.6 %; Hematocrit 29 % (42-52); Hemoglobin 9.6 g/dl (14.0-18.0); Lymphocyte % 24.3 %; Mean Corpuscular HGB Conc 33 g/dl (31-36); Mean Corpuscular Hemoglobin 31 pg (27-31); Mean Corpuscular Volume 95 fL (80-94); Mean Platelet Volume 8.6 fL (7.4-10.4); Nucleated Red Blood Cells % 0; Platelet Count 165 10^3/ul (150-450); Red Blood Count 3.06 10^6/ul (4.00-5.40); Red Cell Distribution Width 15 % (10.5-15); White Blood Count 6.1 10^3/ul (3.5-10.8)
[2018-10-18 07:23] LABS: Calcium 8.8 mg/dL (8.6-10.3); EGFR African American 92.9 (>60); EGFR Non-African American 76.8 (>60); Potassium 4.8 mmol/L (3.5-5.0)
[2018-10-18] MEDS: CMCS:Lactase Enzyme (NF) 3,000 UNIT TAB PO SCH ×2 (08:41→09:44)
[2018-10-18] MEDS: BuPROPion XL* 150 MG TAB.XL PO SCH (09:43)
[2018-10-18] MEDS: guaiFENesin ER TAB 600 MG PO SCH ×2 (09:45→20:52)
[2018-10-18] MEDS: risperiDONE TAB* 1 MG PO SCH ×2 (09:45→20:52)
[2018-10-18] MEDS: Divalproex DR TAB(*) 500 MG PO SCH (09:45)
[2018-10-18] MEDS: Divalproex DR TAB(*) 250 MG PO SCH ×2 (09:45→20:52)
[2018-10-18] MEDS: Insulin GLARGINE(*) 1 UNITS UNIT SUBCUT SCH (09:55)
[2018-10-18] MEDS: Acetaminophen TAB* 325 MG PO PRN (10:51)
[2018-10-18] MEDS: DOXYcycline IV* 100 MG in NS 0.9% 250 ML* 250 ML IVPB SCH (11:25)
[2018-10-18] MEDS: Enoxaparin(*) 30 MG/0.3 ML SYR SUBCUT SCH (12:57)
[2018-10-18] MEDS: cefTRIAXone(*) 1 GM in NS 0.9% 50 ML* 50 ML IVPB SCH (13:26)
[2018-10-18] MEDS: Enoxaparin(*) 40 MG/0.4 ML SYR SUBCUT SCH (13:27)
--- NOTE | 2018-10-18 16:32 | PN ---
Subjective Date of Service: 10/18/18 Interval History: Pt seen and examined. Meds and labs reviewed. CC: N/A ROS: Denied WILHELM/dizziness, F/C, N/V, CP, SOB, increased cough, sputum production , abd pain, diarrhea, constipation, dysuria, myalgias, arthralgias, throat pain , and new skin lesions. The rest of the 14 point ROS are unremarkable. PHYSICAL EXAM: GEN APPEARANCE: Awake, not in acute distress, Obese HEENT: NC/AT, PERRLA, moist oral mucosa, (-) throat erythema NECK: Soft, supple, (-) cervical LAD, (-)JVD HEART: S1S2 WNL, RRR, No MRG CHEST: CTA, BL, GAE, No W/R/R ABD: Soft, ND/NT, NABS 4x Q EXT: No C/C/BLLE 2+ edema SKIN: Warm to touch PSYCH: No active psychosis, hallucinations, depression, SI/HI Family History: Unchanged from Admission Social History: Unchanged from Admission Past Medical History: Unchanged from Admission Objective Active Medications: Acetaminophen (Tylenol Tab*) 650 mg PO Q6H PRN PRN Reason: FEVER/PAIN Last Admin: 10/18/18 10:51 Dose: 650 mg Albuterol/Ipratropium (Duoneb (Albuterol 2.5 Mg/Ipratropium 0.5 Mg)) 1 neb INH Q6H PRN PRN Reason: SOB/WHEEZING Atropine Sulfate (Atropine 1% (Oral/Sl)*) 2 drop SL Q2H PRN PRN Reason: excess oral secretions Last Admin: 10/16/18 22:15 Dose: 2 drop Benzonatate (Tessalon Cap*) 100 mg PO BID PRN PRN Reason: COUGH Bisacodyl (Dulcolax Supp*) 10 mg IA DAILY PRN PRN Reason: CONSTIPATION Bupropion HCl (Wellbutrin Xl *) 150 mg PO DAILY [facility] Last Admin: 10/18/18 09:43 Dose: 150 mg Divalproex Sodium (Depakote Dr Tab(*)) 750 mg PO BID [facility] Last Admin: 10/18/18 09:45 Dose: 750 mg Divalproex Sodium (Depakote Dr Tab(*)) 500 mg PO DAILY [facility] Last Admin: 10/18/18 09:45 Dose: 500 mg Docusate Sodium (Colace Cap*) 100 mg PO DAILY PRN PRN Reason: CONSTIPATION Enoxaparin Sodium (Lovenox(*)) 40 mg SUBCUT Q24H [facility] Last Admin: 10/18/18 13:27 Dose: 40 mg Guaifenesin (Mucinex*) 1,200 mg PO BID [facility] Last Admin: 10/18/18 09:45 Dose: 1,200 mg Ceftriaxone Sodium 1 gm/ (Sodium Chloride) 50 mls @ 200 mls/hr IVPB Q24H [facility] Last Admin: 10/18/18 13:26 Dose: 200 mls/hr Insulin Glargine (Lantus(*)) 30 units SUBCUT QAM [facility] Last Admin: 10/18/18 09:55 Dose: 30 units Lactase (Lactaid Fast Act (Nf)) 9,000 unit PO DAILY WITH MEAL [facility]; Protocol Last Admin: 10/18/18 09:44 Dose: 9,000 unit Magnesium Hydroxide (Milk Of Magnesia Liq*) 30 ml PO DAILY PRN PRN Reason: CONSTIPATION Melatonin (Melatonin) 3 mg PO BEDTIME PRN PRN Reason: INSOMNIA Last Admin: 10/17/18 20:02 Dose: 3 mg Metoprolol Succinate (Toprol Xl Tab*) 25 mg PO BEDTIME [facility] Last Admin: 10/17/18 20:03 Dose: 25 mg Ondansetron HCl (Zofran Inj*) 4 mg IV Q6H PRN PRN Reason: NAUSEA Pregabalin (Lyrica Cap(*)) 25 mg PO BEDTIME [facility] Last Admin: 10/17/18 20:03 Dose: 25 mg Risperidone (Risperdal*) 1 mg PO BID [facility] Last Admin: 10/18/18 09:45 Dose: 1 mg Senna (Senokot Tab*) 2 tab PO DAILY PRN PRN Reason: CONSTIPATION Torsemide (Demadex*) 20 mg PO DAILY [facility] Vital Signs - 8 hr 10/18/18 10/18/18 10/18/18 11:15 15:30 15:48 Temperature 98.0 F 98.2 F Pulse Rate 69 71 Respiratory 16 18 Rate Blood Pressure 135/39 185/58 110/60 (mmHg) O2 Sat by Pulse 97 98 Oximetry Oxygen Devices in Use Now: Nasal Cannula Result Diagrams: 10/18/18 06:05 10/18/18 06:05 Microbiology and Other Data: Microbiology 10/16/18 10:15 Aerobic Blood Culture - Preliminary Blood Venous No Growth Day 1 Anaerobic Blood Culture - Preliminary No Growth Day 1 10/16/18 10:07 Aerobic Blood Culture - Preliminary Blood Venous No Growth Day 1 Anaerobic Blood Culture - Preliminary No Growth Day 1 10/16/18 16:42 Legionella Urinary Antigen - Final Urine Negative Legionella Antigen Streptococcus pneumoniae Ag Screen - Final Negative S. pneumo Antigen 10/16/18 12:16 Nasal Screen MRSA (PCR) - Final Nasal Mrsa Not Detected Assess/Plan/Problems-Billing Assessment: Patient is a 73yo male with a PMH for Advanced Dementia, CHF, DM II, Prostate Cancer, History of PE due to factor 5 leiden who is admitted with ARPAN and hyperkalemia with sepsis of likely urinary source who is improving with fluids and antibiotics. - Patient Problems (1) ARPAN (acute kidney injury) Current Visit: Yes Status: Acute Code(s): N17.9 - ACUTE KIDNEY FAILURE, UNSPECIFIED SNOMED Code(s): 08983213 Comment: -Resolved - Likely due to dehydration, possible urinary obstruction, and possibly sepsis. - Improving with fluids, nearing baseline - Continue to hold IVFs - Hyperkalemia resolved. (2) UTI (urinary tract infection) Current Visit: Yes Status: Acute Comment: - Urine Culture pending, will treat empirically based on UA and symptoms. - Likely cause of Hematuria with anticoagulation, resume anticoagulation when off antibiotics. -Continue day #2/3 of Rocephin; will D/C Doxycycline (3) CHF (congestive heart failure) Current Visit: Yes Status: Acute Code(s): I50.9 - HEART FAILURE, UNSPECIFIED SNOMED Code(s): 31827663 Comment: - Fluid overloaded on exam. - No abnormalities in lung exam improve - Continue to hold antihypertensives at this time. -Will start on low dose Torsemide in AM (4) DM II (diabetes mellitus, type II), controlled Current Visit: Yes Status: Acute Code(s): E11.9 - TYPE 2 DIABETES MELLITUS WITHOUT COMPLICATIONS SNOMED Code(s): 73124976 Comment: - Moderate control, continue SSI and Lantus with ACHS FSBG. (5) Factor 5 Leiden mutation, heterozygous Current Visit: Yes Status: Acute Code(s): D68.51 - ACTIVATED PROTEIN C RESISTANCE SNOMED Code(s): 328703433 Comment: - History 2 PEs, IVC filter in place - Resume anticoagulation with resolution of hematuria. (6) DVT prophylaxis Current Visit: Yes Status: Acute Code(s): IFL7500 - SNOMED Code(s): 411122781 Comment: - Renally dosed Lovenox. - Resume Xarelto when able. Status and Disposition: Will touch base with care coordinators in AM
[2018-10-18] MEDS: Melatonin 3 MG TAB PO PRN (20:51)
[2018-10-18] MEDS: Pregabalin CAP(*) 25 MG PO SCH (20:51)
[2018-10-18] MEDS: Metoprolol Succinate XL TAB* 25 MG PO SCH (20:51)
[2018-10-19] MEDS: Acetaminophen ADULT LIQ* 650 MG/20.3 ML UDC PO PRN ×2 (02:12→10:42)
[2018-10-19] MEDS: guaiFENesin ER TAB 600 MG PO SCH ×2 (08:52→21:23)
[2018-10-19] MEDS: Torsemide TAB* 20 MG PO SCH (08:53)
[2018-10-19] MEDS: BuPROPion XL* 150 MG TAB.XL PO SCH (08:53)
[2018-10-19] MEDS: risperiDONE TAB* 1 MG PO SCH ×2 (08:53→21:22)
[2018-10-19] MEDS: Divalproex DR TAB(*) 500 MG PO SCH (08:53)
[2018-10-19] MEDS: Divalproex DR TAB(*) 250 MG PO SCH ×2 (08:53→21:23)
[2018-10-19] MEDS: CMCS:Lactase Enzyme (NF) 3,000 UNIT TAB PO SCH (08:53)
[2018-10-19] MEDS: Insulin GLARGINE(*) 1 UNITS UNIT SUBCUT SCH (08:57)
[2018-10-19 09:00] LABS: Albumin 2.5 g/dL (3.2-5.2); Calcium 8.6 mg/dL (8.6-10.3); Magnesium 1.7 mg/dL (1.9-2.7); Potassium 4.5 mmol/L (3.5-5.0); Total Bilirubin 0.3 mg/dL (0.2-1.0)
[2018-10-19 09:06] LABS: BUN/Creatinine Ratio 23.9 (8-20); EGFR African American 102.7 (>60); EGFR Non-African American 84.9 (>60); Globulin 2.6 g/dL (2-4); Phosphorus 2.7 mg/dL (2.5-5.0); Total Protein 5.1 g/dL (6.4-8.9)
[2018-10-19] MEDS ORDERED: Magnesium Sulfate IV* 3 GM in NS 0.9% 100 ML* 100 ML IVPB ONE (10:00)
[2018-10-19 12:12] LABS: Hematocrit 34 % (42-52); Hemoglobin 10.8 g/dl (14.0-18.0); Mean Corpuscular HGB Conc 32 g/dl (31-36); Mean Corpuscular Hemoglobin 31 pg (27-31); Mean Corpuscular Volume 97 fL (80-94); Red Blood Count 3.48 10^6/ul (4.00-5.40); Red Cell Distribution Width 15 % (10.5-15); White Blood Count 2.8 10^3/ul (3.5-10.8)
[2018-10-19 12:29] LABS: ABS Basophils 0 10^3/ul (0-0.2); ABS Eosinophils 0.1 10^3/ul (0-0.6); ABS Lymphocytes 1.1 10^3/ul (1.0-4.8); ABS Monocytes 0.4 10^3/ul (0-0.8); ABS Neutrophils 1.3 10^3/ul (1.5-7.7); ABS Nucleated RBC 0 10^3/ul; Lymphocyte % 37.3 %; Nucleated Red Blood Cells % 0.1; Platelet Count Platelets clumped. 10^3/ul (150-450)
[2018-10-19] MEDS: Enoxaparin(*) 40 MG/0.4 ML SYR SUBCUT SCH (13:19)
[2018-10-19] MEDS: cefTRIAXone(*) 1 GM in NS 0.9% 50 ML* 50 ML IVPB SCH (14:40)
--- NOTE | 2018-10-19 17:40 | PN ---
Subjective Date of Service: 10/19/18 Interval History: Pt seen and examined. Meds and labs reviewed. CC: N/A ROS: Denied WILHELM/dizziness, F/C, N/V, CP, SOB, increased cough, sputum production , abd pain, diarrhea, constipation, dysuria, myalgias, arthralgias, throat pain , and new skin lesions. The rest of the 14 point ROS are unremarkable. PHYSICAL EXAM: GEN APPEARANCE: Awake, not in acute distress, Obese HEENT: NC/AT, PERRLA, moist oral mucosa, (-) throat erythema NECK: Soft, supple, (-) cervical LAD, difficult to assess JVD given obesity HEART: S1S2 WNL, RRR, No RG, (+)4/6 murmur CHEST: GAE, No W/R (+)diffuse ronchi ABD: Soft, ND/NT, NABS 4x Q EXT: No C/C/BLLE 2+ edema SKIN: Warm to touch PSYCH: No active psychosis, hallucinations, depression, SI/HI Family History: Unchanged from Admission Social History: Unchanged from Admission Past Medical History: Unchanged from Admission Objective Active Medications: Acetaminophen (Tylenol Adult Liq*) 650 mg PO Q6H PRN PRN Reason: FEVER/PAIN Last Admin: 10/19/18 10:42 Dose: 650 mg Albuterol/Ipratropium (Duoneb (Albuterol 2.5 Mg/Ipratropium 0.5 Mg)) 1 neb INH Q6H PRN PRN Reason: SOB/WHEEZING Atropine Sulfate (Atropine 1% (Oral/Sl)*) 2 drop SL Q2H PRN PRN Reason: excess oral secretions Last Admin: 10/16/18 22:15 Dose: 2 drop Benzonatate (Tessalon Cap*) 100 mg PO BID PRN PRN Reason: COUGH Bisacodyl (Dulcolax Supp*) 10 mg SC DAILY PRN PRN Reason: CONSTIPATION Bupropion HCl (Wellbutrin Xl *) 150 mg PO DAILY [facility] Last Admin: 10/19/18 08:53 Dose: 150 mg Divalproex Sodium (Depakote Dr Tab(*)) 750 mg PO BID [facility] Last Admin: 10/19/18 08:53 Dose: 750 mg Divalproex Sodium (Depakote Dr Tab(*)) 500 mg PO DAILY [facility] Last Admin: 10/19/18 08:53 Dose: 500 mg Docusate Sodium (Colace Cap*) 100 mg PO DAILY PRN PRN Reason: CONSTIPATION Furosemide (Lasix Iv*) 40 mg IV SLOW PU BID [facility] Guaifenesin (Mucinex*) 1,200 mg PO BID [facility] Last Admin: 10/19/18 08:52 Dose: 1,200 mg Ceftriaxone Sodium 1 gm/ (Sodium Chloride) 50 mls @ 200 mls/hr IVPB Q24H [facility] Last Admin: 10/19/18 14:40 Dose: 200 mls/hr Insulin Glargine (Lantus(*)) 30 units SUBCUT QAM [facility] Last Admin: 10/19/18 08:57 Dose: 30 units Lactase (Lactaid Fast Act (Nf)) 9,000 unit PO DAILY WITH MEAL [facility]; Protocol Last Admin: 10/19/18 08:53 Dose: 9,000 unit Magnesium Hydroxide (Milk Of Magnesia Liq*) 30 ml PO DAILY PRN PRN Reason: CONSTIPATION Melatonin (Melatonin) 3 mg PO BEDTIME PRN PRN Reason: INSOMNIA Last Admin: 10/18/18 20:51 Dose: 3 mg Metoprolol Succinate (Toprol Xl Tab*) 25 mg PO BEDTIME [facility] Last Admin: 10/18/18 20:51 Dose: 25 mg Ondansetron HCl (Zofran Inj*) 4 mg IV Q6H PRN PRN Reason: NAUSEA Pregabalin (Lyrica Cap(*)) 25 mg PO BEDTIME [facility] Last Admin: 10/18/18 20:51 Dose: 25 mg Risperidone (Risperdal*) 1 mg PO BID [facility] Last Admin: 10/19/18 08:53 Dose: 1 mg Rivaroxaban (Xarelto(*)) 20 mg PO QPM [facility] Senna (Senokot Tab*) 2 tab PO DAILY PRN PRN Reason: CONSTIPATION Torsemide (Demadex*) 20 mg PO DAILY [facility] Last Admin: 10/19/18 08:53 Dose: 20 mg Vital Signs - 8 hr 10/19/18 10/19/18 13:10 15:22 Temperature 97.9 F 97.8 F Pulse Rate 59 70 Respiratory 16 16 Rate Blood Pressure 131/50 154/58 (mmHg) O2 Sat by Pulse 97 96 Oximetry Oxygen Devices in Use Now: None Result Diagrams: 10/19/18 08:33 10/19/18 08:33 Microbiology and Other Data: Microbiology 10/16/18 10:15 Aerobic Blood Culture - Preliminary Blood Venous No Growth Day 1 Anaerobic Blood Culture - Preliminary No Growth Day 1 10/16/18 10:07 Aerobic Blood Culture - Preliminary Blood Venous No Growth Day 1 Anaerobic Blood Culture - Preliminary No Growth Day 1 10/16/18 16:42 Legionella Urinary Antigen - Final Urine Negative Legionella Antigen Streptococcus pneumoniae Ag Screen - Final Negative S. pneumo Antigen 10/16/18 12:16 Nasal Screen MRSA (PCR) - Final Nasal Mrsa Not Detected Assess/Plan/Problems-Billing Assessment: Patient is a 73yo male with a PMH for Advanced Dementia, CHF, DM II, Prostate Cancer, History of PE due to factor 5 leiden who is admitted with ARPAN and hyperkalemia with sepsis of likely urinary source who is improving with fluids and antibiotics. - Patient Problems (1) CHF exacerbation Current Visit: Yes Status: Acute Code(s): I50.9 - HEART FAILURE, UNSPECIFIED SNOMED Code(s): 44569053 Comment: -Likely due to fluid resuscitation but pt has known hx of CHF -CT chest: BL pleural effusions -Increased BNP from previous baseline, although only mildly so -Will obtain 2D echo in AM -Continue Torsemide -Will add Lasix IV BID to his regimen (2) ARPAN (acute kidney injury) Current Visit: Yes Status: Acute Code(s): N17.9 - ACUTE KIDNEY FAILURE, UNSPECIFIED SNOMED Code(s): 17151646 Comment: -Resolved - Likely due to dehydration, possible urinary obstruction, and possibly sepsis. (3) UTI (urinary tract infection) Current Visit: Yes Status: Acute Comment: - Urine Culture (-) - Likely cause of Hematuria with anticoagulation, resume anticoagulation when off antibiotics. -Continue day #3/7 of Rocephin (given pt is male); will D/C Doxycycline (4) DM II (diabetes mellitus, type II), controlled Current Visit: Yes Status: Acute Code(s): E11.9 - TYPE 2 DIABETES MELLITUS WITHOUT COMPLICATIONS SNOMED Code(s): 85991505 Comment: - Moderate control, continue SSI and Lantus with ACHS FSBG. (5) Factor 5 Leiden mutation, heterozygous Current Visit: Yes Status: Acute Code(s): D68.51 - ACTIVATED PROTEIN C RESISTANCE SNOMED Code(s): 429876061 Comment: - History 2 PEs, IVC filter in place - Will resume Xarelto tomorrow (6) DVT prophylaxis Current Visit: Yes Status: Acute Code(s): TWV9235 - SNOMED Code(s): 473120724 Comment: - Resume Xarelto tomorrow -D/C Lovenox SQ Status and Disposition: -Possible D/C in 1-2 days back to [facility]?
[2018-10-19] MEDS: Metoprolol Succinate XL TAB* 25 MG PO SCH (21:23)
[2018-10-19] MEDS: Pregabalin CAP(*) 25 MG PO SCH (21:24)
[2018-10-19] MEDS: Furosemide IV* 10 MG/ML VIAL (40 MG) IV SLOW PU SCH (21:24)
[2018-10-20 05:28] LABS: ABS Basophils 0 10^3/ul (0-0.2); ABS Eosinophils 0.2 10^3/ul (0-0.6); ABS Lymphocytes 1.6 10^3/ul (1.0-4.8); ABS Monocytes 0.6 10^3/ul (0-0.8); ABS Neutrophils 3.2 10^3/ul (1.5-7.7); ABS Nucleated RBC 0 10^3/ul; Eosinophil % 2.7 %; Hematocrit 30 % (42-52); Lymphocyte % 28.7 %; Mean Corpuscular HGB Conc 33 g/dl (31-36); Mean Corpuscular Hemoglobin 31 pg (27-31); Mean Corpuscular Volume 93 fL (80-94); Mean Platelet Volume 8.1 fL (7.4-10.4); Nucleated Red Blood Cells % 0; Platelet Count 216 10^3/ul (150-450); Red Blood Count 3.23 10^6/ul (4.00-5.40); Red Cell Distribution Width 14 % (10.5-15); White Blood Count 5.7 10^3/ul (3.5-10.8)
[2018-10-20 05:39] LABS: BUN/Creatinine Ratio 22.4 (8-20); Calcium 8.7 mg/dL (8.6-10.3); EGFR Non-African American 67.7 (>60); Magnesium 1.7 mg/dL (1.9-2.7); Potassium 4.2 mmol/L (3.5-5.0)
[2018-10-20] MEDS: guaiFENesin ER TAB 600 MG PO SCH ×2 (08:29→19:57)
[2018-10-20] MEDS: CMCS:Lactase Enzyme (NF) 3,000 UNIT TAB PO SCH (08:29)
[2018-10-20] MEDS: risperiDONE TAB* 1 MG PO SCH ×2 (08:29→19:56)
[2018-10-20] MEDS: BuPROPion XL* 150 MG TAB.XL PO SCH (08:30)
[2018-10-20] MEDS: Insulin GLARGINE(*) 1 UNITS UNIT SUBCUT SCH (08:30)
[2018-10-20] MEDS: Furosemide IV* 10 MG/ML VIAL (40 MG) IV SLOW PU SCH ×2 (08:30→19:58)
[2018-10-20] MEDS: Divalproex DR TAB(*) 500 MG PO SCH (08:30)
[2018-10-20] MEDS: Torsemide TAB* 20 MG PO SCH (08:30)
[2018-10-20] MEDS: Acetaminophen ADULT LIQ* 650 MG/20.3 ML UDC PO PRN ×2 (08:33→19:44)
[2018-10-20] MEDS: Divalproex DR TAB(*) 250 MG PO SCH ×2 (08:47→19:57)
[2018-10-20] MEDS ORDERED: Dextrose 50% Syringe 50 ML* 25 GM/50 ML SYRINGE IV PUSH PRN (10:03)
[2018-10-20] MEDS ORDERED: Magnesium Sulfate IV* 3 GM in NS 0.9% 100 ML* 100 ML IVPB ONE (10:30)
[2018-10-20] MEDS: Insulin LISPRO* 1 UNITS UNIT SUBCUT SCH ×2 (12:09→17:22)
[2018-10-20] MEDS: cefTRIAXone(*) 1 GM in NS 0.9% 50 ML* 50 ML IVPB SCH (12:39)
[2018-10-20] MEDS ORDERED: Rivaroxaban TAB(*) 20 MG TAB PO SCH (18:00)
--- NOTE | 2018-10-20 19:43 | PN ---
Subjective Date of Service: 10/20/18 Interval History: Pt seen and examined. Meds and labs reviewed. CC: N/A ROS: Denied WILHELM/dizziness, F/C, N/V, CP, SOB, increased cough, sputum production , abd pain, diarrhea, constipation, dysuria, myalgias, arthralgias, throat pain , and new skin lesions. The rest of the 14 point ROS are unremarkable. PHYSICAL EXAM: GEN APPEARANCE: Awake, not in acute distress, Obese HEENT: NC/AT, PERRLA, moist oral mucosa, (-) throat erythema NECK: Soft, supple, (-) cervical LAD, difficult to assess JVD given obesity HEART: S1S2 WNL, RRR, No RG, (+)4/6 murmur CHEST: GAE, No W/R (+)diffuse ronchi ABD: Soft, ND/NT, NABS 4x Q EXT: No C/C/BLLE 2+ edema SKIN: Warm to touch PSYCH: No active psychosis, hallucinations, depression, SI/HI Family History: Unchanged from Admission Social History: Unchanged from Admission Past Medical History: Unchanged from Admission Objective Active Medications: Acetaminophen (Tylenol Adult Liq*) 650 mg PO Q6H PRN PRN Reason: FEVER/PAIN Last Admin: 10/20/18 08:33 Dose: 650 mg Albuterol/Ipratropium (Duoneb (Albuterol 2.5 Mg/Ipratropium 0.5 Mg)) 1 neb INH Q6H PRN PRN Reason: SOB/WHEEZING Atropine Sulfate (Atropine 1% (Oral/Sl)*) 2 drop SL Q2H PRN PRN Reason: excess oral secretions Last Admin: 10/16/18 22:15 Dose: 2 drop Benzonatate (Tessalon Cap*) 100 mg PO BID PRN PRN Reason: COUGH Bisacodyl (Dulcolax Supp*) 10 mg ND DAILY PRN PRN Reason: CONSTIPATION Bupropion HCl (Wellbutrin Xl *) 150 mg PO DAILY [facility] Last Admin: 10/20/18 08:30 Dose: 150 mg Dextrose (D50w Syringe 50 Ml*) 12.5 gm IV PUSH .FOR FS < 60 - SS PRN PRN Reason: FS < 60 Divalproex Sodium (Depakote Dr Tab(*)) 750 mg PO BID [facility] Last Admin: 10/20/18 08:47 Dose: 750 mg Divalproex Sodium (Depakote Dr Tab(*)) 500 mg PO DAILY [facility] Last Admin: 10/20/18 08:30 Dose: 500 mg Docusate Sodium (Colace Cap*) 100 mg PO DAILY PRN PRN Reason: CONSTIPATION Furosemide (Lasix Iv*) 40 mg IV SLOW PU BID [facility] Last Admin: 10/20/18 08:30 Dose: 40 mg Guaifenesin (Mucinex*) 1,200 mg PO BID [facility] Last Admin: 10/20/18 08:29 Dose: 1,200 mg Ceftriaxone Sodium 1 gm/ (Sodium Chloride) 50 mls @ 200 mls/hr IVPB Q24H [facility] Last Admin: 10/20/18 12:39 Dose: 200 mls/hr Insulin Glargine (Lantus(*)) 30 units SUBCUT QAM [facility]PL[facility] Last Admin: 10/20/18 08:30 Dose: 30 units Insulin Human Lispro (Humalog*) 6 units SUBCUT AC REPLACED BY [facility] Last Admin: 10/20/18 17:22 Dose: 6 units Lactase (Lactaid Fast Act (Nf)) 9,000 unit PO DAILY WITH MEAL [facility]PL[facility]; Protocol Last Admin: 10/20/18 08:29 Dose: 9,000 unit Magnesium Hydroxide (Milk Of Magnesia Liq*) 30 ml PO DAILY PRN PRN Reason: CONSTIPATION Melatonin (Melatonin) 3 mg PO BEDTIME PRN PRN Reason: INSOMNIA Last Admin: 10/18/18 20:51 Dose: 3 mg Metoprolol Succinate (Toprol Xl Tab*) 25 mg PO BEDTIME [facility] Last Admin: 10/19/18 21:23 Dose: 25 mg Ondansetron HCl (Zofran Inj*) 4 mg IV Q6H PRN PRN Reason: NAUSEA Pregabalin (Lyrica Cap(*)) 25 mg PO BEDTIME [facility] Last Admin: 10/19/18 21:24 Dose: 25 mg Risperidone (Risperdal*) 1 mg PO BID [facility] Last Admin: 10/20/18 08:29 Dose: 1 mg Rivaroxaban (Xarelto(*)) 20 mg PO QPM [facility]PL[facility] Last Admin: 10/20/18 17:23 Dose: 20 mg Senna (Senokot Tab*) 2 tab PO DAILY PRN PRN Reason: CONSTIPATION Torsemide (Demadex*) 20 mg PO DAILY [facility] Last Admin: 10/20/18 08:30 Dose: 20 mg Vital Signs - 8 hr 10/20/18 10/20/18 12:34 16:11 Temperature 97.4 F 97.7 F Pulse Rate 58 62 Respiratory 16 14 Rate Blood Pressure 130/40 135/68 (mmHg) O2 Sat by Pulse 95 97 Oximetry Oxygen Devices in Use Now: None Result Diagrams: 10/20/18 05:07 10/20/18 05:07 Microbiology and Other Data: Microbiology 10/16/18 10:15 Aerobic Blood Culture - Preliminary Blood Venous No Growth Day 1 Anaerobic Blood Culture - Preliminary No Growth Day 1 10/16/18 10:07 Aerobic Blood Culture - Preliminary Blood Venous No Growth Day 1 Anaerobic Blood Culture - Preliminary No Growth Day 1 10/16/18 16:42 Legionella Urinary Antigen - Final Urine Negative Legionella Antigen Streptococcus pneumoniae Ag Screen - Final Negative S. pneumo Antigen 10/16/18 12:16 Nasal Screen MRSA (PCR) - Final Nasal Mrsa Not Detected Assess/Plan/Problems-Billing Assessment: Patient is a 73yo male with a PMH for Advanced Dementia, CHF, DM II, Prostate Cancer, History of PE due to factor 5 leiden who is admitted with ARPAN and hyperkalemia with sepsis of likely urinary source who is improving with fluids and antibiotics. - Patient Problems (1) CHF exacerbation Current Visit: Yes Status: Acute Code(s): I50.9 - HEART FAILURE, UNSPECIFIED SNOMED Code(s): 83545885 Comment: -Likely due to fluid resuscitation but pt has known hx of CHF -CT chest: BL pleural effusions -Increased BNP from previous baseline, although only mildly so -Awaiting 2Decho -Continue Torsemide -Continue Lasix IV BID to his regimen (2) ARPAN (acute kidney injury) Current Visit: Yes Status: Acute Code(s): N17.9 - ACUTE KIDNEY FAILURE, UNSPECIFIED SNOMED Code(s): 10141494 Comment: -Resolved - Likely due to dehydration, possible urinary obstruction, and possibly sepsis. (3) UTI (urinary tract infection) Current Visit: Yes Status: Acute Comment: - Urine Culture (-) - Likely cause of Hematuria with anticoagulation, resume anticoagulation when off antibiotics. -Continue day #4/7 of Rocephin (given pt is male); will D/C Doxycycline (4) DM II (diabetes mellitus, type II), controlled Current Visit: Yes Status: Acute Code(s): E11.9 - TYPE 2 DIABETES MELLITUS WITHOUT COMPLICATIONS SNOMED Code(s): 73070421 Comment: - Added qAC insulin lispro to regimen -Continue watchful waiting (5) Factor 5 Leiden mutation, heterozygous Current Visit: Yes Status: Acute Code(s): D68.51 - ACTIVATED PROTEIN C RESISTANCE SNOMED Code(s): 092442618 Comment: - History 2 PEs, IVC filter in place (6) DVT prophylaxis Current Visit: Yes Status: Acute Code(s): LJB6624 - SNOMED Code(s): 225648352 Comment: - Resume Xarelto tomorrow -D/C Lovenox SQ Status and Disposition: -Possible D/C in back to [facility] in AM
[2018-10-20] MEDS: Metoprolol Succinate XL TAB* 25 MG PO SCH (19:57)
[2018-10-20] MEDS: Pregabalin CAP(*) 25 MG PO SCH (19:57)
[2018-10-21 06:53] LABS: BUN/Creatinine Ratio 23.3 (8-20); Calcium 8.9 mg/dL (8.6-10.3); EGFR African American 85.7 (>60); EGFR Non-African American 70.8 (>60); Magnesium 1.9 mg/dL (1.9-2.7); Phosphorus 3.6 mg/dL (2.5-5.0); Potassium 4.1 mmol/L (3.5-5.0)
[2018-10-21 07:10] LABS: Hematocrit 31 % (42-52); Hemoglobin 10.2 g/dl (14.0-18.0); Mean Corpuscular HGB Conc 33 g/dl (31-36); Mean Corpuscular Hemoglobin 31 pg (27-31); Mean Corpuscular Volume 93 fL (80-94); Mean Platelet Volume 7.8 fL (7.4-10.4); Platelet Count 206 10^3/ul (150-450); Red Blood Count 3.31 10^6/ul (4.00-5.40); Red Cell Distribution Width 14 % (10.5-15); White Blood Count 6.1 10^3/ul (3.5-10.8)
[2018-10-21] MEDS: CMCS:Lactase Enzyme (NF) 3,000 UNIT TAB PO SCH (08:28)
[2018-10-21] MEDS: BuPROPion XL* 150 MG TAB.XL PO SCH (08:29)
[2018-10-21] MEDS: Divalproex DR TAB(*) 500 MG PO SCH (08:29)
[2018-10-21] MEDS: Divalproex DR TAB(*) 250 MG PO SCH (08:29)
[2018-10-21] MEDS: guaiFENesin ER TAB 600 MG PO SCH (08:29)
[2018-10-21] MEDS: Torsemide TAB* 20 MG PO SCH (08:29)
[2018-10-21] MEDS: risperiDONE TAB* 1 MG PO SCH (08:29)
[2018-10-21] MEDS: Furosemide IV* 10 MG/ML VIAL (40 MG) IV SLOW PU SCH ×2 (08:29→08:56)
[2018-10-21] MEDS: Insulin LISPRO* 1 UNITS UNIT SUBCUT SCH ×3 (08:43→13:49)
[2018-10-21] MEDS ORDERED: Insulin GLARGINE(*) 1 UNITS UNIT SUBCUT SCH (09:00)
[2018-10-21] MEDS ORDERED: Acetaminophen TAB* 325 MG PO PRN (09:21)
[2018-10-21] MEDS: cefTRIAXone(*) 1 GM in NS 0.9% 50 ML* 50 ML IVPB SCH (11:31)
--- NOTE | 2018-10-21 14:27 | DS ---
CC: Dr. Jacek Hermosillo; Sheila Kaur NP; Dr. Irene Pan; Dr. Aislinn Ingram; Dr. Charisse Willis; Dr. Olu Gold; [facility] * DISCHARGE SUMMARY: DATE OF ADMISSION: DATE OF DISCHARGE: 10/21/18 DISCHARGE CONDITION: Stable. DISPOSITION: [facility] facility; [facility]. DISCHARGE DIAGNOSES: As follows: 1. Congestive heart failure exacerbation; needs 2D echo as outpatient; ordered in the weekend, but could not be done. 2. Acute kidney injury, resolved. 3. Urinary tract infection, improved. 4. Sepsis, likely due to urinary tract infection, resolved. 5. Diabetes, history of. 6. Factor V Leiden, history of. DISCHARGE MEDICATIONS: As follows: 1. Benzonatate 100 mg p.o. t.i.d. p.r.n. 2. Bisacodyl 10 mg SC daily. 3. Bupropion 150 mg p.o. daily. 4. Divalproex 500 mg p.o. daily. 5. Divalproex 750 mg p.o. b.i.d. 6. Lantus 26 units subcu q.a.m. 7. Insulin lispro 5 units subcu, p.c. 8. Lactase enzyme 9000 units p.o. q.a.m. 9. Magnesium hydroxide 30 mL p.o. daily. 10. Metoprolol succinate 25 mg p.o. q.h.s. 11. Pregabalin 25 mg p.o. q.h.s. 12. Risperdal 2 mg p.o. b.i.d. 13. Senna Plus 2 tabs p.o. daily. 14. Tylenol 1000 mg p.o. b.i.d. 15. Tylenol 650 mg p.o. q.4 p.r.n. 16. Hydrocortisone 1% cream 1 application topically q.8 hours p.r.n. 17. Guaifenesin 600 mg p.o. b.i.d. p.r.n. 18. Cholecalciferol 2000 units p.o. daily. 19. Floranex 2 tabs p.o. daily for 10 days. 20. Lidocaine 4% patch daily. 21. Nystatin powder 1 application topically b.i.d. 22. Potassium chloride 20 mEq p.o. daily. 23. Rivaroxaban 20 mg p.o. q.p.m. 24. Selenium sulfide 1% topical solution on . 25. Torsemide 40 mg p.o. daily. 26. Triamcinolone 1% cream 1 application b.i.d. p.r.n. HISTORY OF PRESENT ILLNESS/HOSPITAL COURSE: The patient is a 73-year-old gentleman, resident of [facility], who until 2 days prior to admission was in his usual state of health when he began having some mental status change the day before, which then subsequently worsened the following morning where he was thought to be unresponsive and hence, he was brought to the ED. He was subsequently diagnosed with sepsis and acute renal failure secondary to UTI. He had been placed on Rocephin and cultures of his urine turned out to be negative, but his mental status has since improved after a few days of antibiotic therapy and was hydrated for fluid resuscitation given his mild hypotension with SBPs in the 90s to 80s. Unfortunately, he started developing some iatrogenic fluid overload; however, he has not had any 2D echo in a while and this is currently pending prior to his discharge. Hence, he was advised to obtain a 2D echo to further evaluate his EF as well as any form of diastolic dysfunction as an outpatient, but will defer with [facility] on this note to order it as an outpatient. I will place it in his discharge instructions. His insulin regimen was also adjusted and he has since done well with his current regimen and was advised to continue this. The patient was advised to follow up and/or call his PCP/facility MD within 3 days post discharge to [facility] for further evaluation. He was advised to make sure that he takes no more than 2 g per day of sodium from all foods and drink sources and he was advised that he might require an outpatient 2D echo, but we will defer on this with practitioners at [facility]. He was advised that if his symptoms resume or develop new ones or feels unwell for any reason, to call his PCP first. If his PCP cannot entertain him due to scheduling issues alone, he was advised to call [facility] if the issue is nonemergent. He was advised to call my office regarding any questions, concerns, or further clarifications regarding his discharge plans and/or prescriptions and to take his medications as prescribed. REVIEW OF SYSTEMS: The patient currently denies any headaches, dizziness, fevers, chills, nausea, vomiting, chest pain, shortness of breath, increased coughing and/or sputum production, abdominal pain, diarrhea, constipation, pain and/or increased frequency in urination, myalgias, arthralgias, throat pain, or new skin lesions. The rest of the 14-point review of systems are, otherwise, unremarkable. PHYSICAL EXAMINATION: Shows the most recent vital signs of records with blood pressure of 155/63 from 120/56, temperature of 98.5 degrees Fahrenheit, 69 beats per minute heart rate, 16 per minute respiratory rate, saturating at 100% room air. General Appearance: The patient is awake, not in acute distress, obese. HEENT: Normocephalic, atraumatic. PERRLA. Extraocular muscles intact. Negative for icterus. Neck is soft, supple, with no cervical lymphadenopathy. No JVD. Heart: S1, S2, with 4/6 murmur. No rubs, no gallops appreciated. Abdomen is soft, nondistended, nontender. Normoactive bowel sounds x4 quadrants. Extremities: No cyanosis, clubbing, with 2 to 3+ bilateral lower extremity edema. Psychiatric: No active psychosis, depression , suicidal or homicidal ideation, with blunt affect. Skin is warm to touch. TIME SPENT: The total time spent evaluating patient, reviewing pertinent data and appropriate documentation is 45 minutes. [id number]/CPS #: [id number] MTDD
[2018-10-21 15:26] VITALS: BP 133/63
--- NOTE | 2018-10-21 17:32 | ECHO ---
Patient: HARJINDER MAHONEY [facility] Rec#: [id number] : 1945 Date: 10/21/2018 Age: 73y Height: 168 cm / 66.1 in Weight: 131 kg / 288.7 lbs Sex: M BSA: 2.34 Room#: [facility] Admit Date#: 10/16/2018 Type: Inpatient Referring: Kemar Reese Reading: Yakov Matt DO Svp Of Digital: Emma Dhaliwal,CELYCS,RDMS CC: Charisse Willis MD Transthoracic Echocardiogram Indication: CHF BP: 52/ HR: 50 Rhythm: Bradycardia Findings History: CHF, DM, HTN, Factor V Leiden, PE Technical Comments: The study is technically difficult. The study is technically limited due to poor acoustic windows. Left Ventricle: The left ventricle is not well visualized. Left Atrium: The left atrium is not well visualized. Right Ventricle: The right ventricle is not well visualized. Right Atrium: The right atrium is not well visualized. Aortic Valve: The aortic valve structure is not well visualized. There is no evidence of aortic regurgitation. Mitral Valve: The mitral valve structure is not well visualized. Tricuspid Valve: The tricuspid valve structure is not well visualized. Pulmonic Valve: The pulmonic valve structure is not well visualized. Pericardium: There is no significant pericardial effusion. Aorta: The aorta is not well visualized. There is no dilatation of the aortic arch. Pulmonary Artery: The main pulmonary artery is not well visualized. Venous: The inferior vena cava appears normal in size. There is an approximate 50% respiratory change in the inferior vena cava dimension. Conclusions The heart is essentially not visualized in this study. Could consider a JEREMY Measurements Name Value Normal Range Aortic arch 2.5 cm (1.8 - 3.4) Name Value Normal Range MV E-wave Vmax 0.4 m/sec - MV deceleration time 253 msec - MV A-wave Vmax 0.9 m/sec - MV E:A ratio 0.4 ratio - LV septal e' Vmax 0.04 m/sec - LV lateral e' Vmax 0.03 m/sec - LV E:e' septal ratio 10 ratio - LV E:e' lateral ratio 12 ratio - Name Value Normal Range AV Vmax 1.5 m/sec - AV VTI 25 cm - AV peak gradient 9 mmHg - AV mean gradient 4 mmHg - LVOT Vmax 0.9 m/sec - LVOT VTI 15 cm - LVOT peak gradient 3.2 mmHg - LVOT mean gradient 2 mmHg - Name Value Normal Range RAP 8 mmHg - IVC diameter 2.1 cm -
== END 2018-10-21 16:16 | DRG 872 ==
LOC: ED 09:33 → MEDTELE 11:59
PROVIDERS: ADMIT Internal Medicine; ATTEND Student in an Organized Health Care Education/Training Program
DX: A41.9 Sepsis, unspecified organism (principal); N17.9 Acute kidney failure, unspecified; D68.51 Activated protein C resistance; N39.0 Urinary tract infection, site not specified; J98.11 Atelectasis; N13.30 Unspecified hydronephrosis; Z68.42 Body mass index [BMI] 45.0-49.9, adult; I95.9 Hypotension, unspecified; I50.9 Heart failure, unspecified; Z66 Do not resuscitate; E87.5 Hyperkalemia; I11.0 Hypertensive heart disease with heart failure; E86.0 Dehydration; N99.114 Postprocedural urethral stricture, male, unspecified; E11.9 Type 2 diabetes mellitus without complications; F03.90 Unspecified dementia, unspecified severity, without behavioral disturbance, psychotic disturbance, mood disturbance, and anxiety; I45.10 Unspecified right bundle-branch block; F31.9 Bipolar disorder, unspecified; E66.9 Obesity, unspecified; Z86.711 Personal history of pulmonary embolism; Z79.01 Long term (current) use of anticoagulants; Z85.46 Personal history of malignant neoplasm of prostate; Z92.21 Personal history of antineoplastic chemotherapy; Z79.1 Long term (current) use of non-steroidal anti-inflammatories (NSAID); Z79.4 Long term (current) use of insulin; Z79.899 Other long term (current) drug therapy; Z88.8 Allergy status to other drugs, medicaments and biological substances; Z88.1 Allergy status to other antibiotic agents; Z91.011 Allergy to milk products; Z83.3 Family history of diabetes mellitus; Z84.89 Family history of other specified conditions; Z92.3 Personal history of irradiation
CPT/HCPCS: 36415; 70450; 71045; 71250; 74176; 80048; 80053; 80164; 81003; 81015; 82330; 83605; 83735; 83880; 84100; 84484; 85025; 85027; 85060; 85610; 85730; 86140; 87040; 87077; 87086; 87641; 87899; 93005; 93308; 99284; A9270-GY; J0696; J1650; J1940; J3475

== ENCOUNTER 2019-06-05 12:25 | Inpatient (IN) | payer MEDICARE, MEDICAID ==
[2019-06-05] MEDS ORDERED: Dextrose 50% VIAL 50 ml ONE (12:45)
--- NOTE | 2019-06-05 12:48 | ED ---
Neurological HPI - HPI Summary HPI Summary: The patient is a 73 y/o M arriving by ambulance to [facility] from [facility] with a chief complaint of possible seizure this morning. Per [facility] staff, the patient was found unresponsive with a pulse, but once he became responsive again , he was cyanotic. His blood glucose was found to be in the 40s, so glucagon was administered. EMS also administered Dextrose and found a blood glucose of 85. He now c/o shortness of breath. He denies any chest pain or headache. Currently, he rates his symptoms 4/10 in severity. PMHx: seizures, DM, CHF, HTN , asthma, Alzehimers, anxiety, depression, bipolar disorder. Nonsmoker, no EtOH , no substance use. Medications reviewed. Allergies noted. LEVEL 5 CAVEAT secondary to dementia, he is able to answer some questions. - History of Current Complaint Chief Complaint: EDSeizure Stated Complaint: POSSIBLE SEIZURE Time Seen by Provider: 06/05/19 12:34 Hx Obtained From: Patient, EMS Hx From Patient Unobtainable Due To: Dementia - LEVEL 5 CAVEAT Onset/Duration: Sudden Onset, Started minutes ago, Resolved Timing: Sudden Onset Onset Severity: Moderate Current Severity: Mild Seizure Severity: Self Limited Pain Intensity: 4 Pain Scale Used: 0-10 Numeric Character: Responsiveness Aggravating: Unknown Alleviating: Unknown Associated Signs and Symptoms: Positive: Shortness of Breath. Negative: Headache, Chest Pain - Additional Pertinent History Primary Care Physician: [id number] - Allergy/Home Medications Allergies/Adverse Reactions: Allergies Allergy/AdvReac Type Severity Reaction Status Date / Time banana Allergy Unknown Verified 10/16/18 09:47 Reaction Details carbamazepine [From Tegretol] Allergy Unknown Verified 10/16/18 09:47 Reaction Details erythromycin base Allergy Unknown Verified 10/16/18 09:47 Reaction Details gabapentin [From Neurontin] Allergy Unknown Verified 10/16/18 09:47 Reaction Details gemfibrozil Allergy Unknown Verified 10/16/18 09:47 Reaction Details lactose Allergy Unknown Verified 10/16/18 09:47 Reaction Details levofloxacin [From Levaquin] Allergy Unknown Verified 10/16/18 09:47 Reaction Details memantine [From Namenda] Allergy Unknown Verified 10/16/18 09:47 Reaction Details terazosin Allergy Unknown Verified 10/16/18 09:47 Reaction Details topiramate [From Topamax] Allergy Unknown Verified 10/16/18 09:47 Reaction Details Home Medications: Home Medications Divalproex DR TAB(*) [Chelsea GREEN(*)] 500 mg PO DAILY 06/05/19 [History Confirmed 06/05/19] Divalproex DR TAB(*) [Chelsea GREEN(*)] 750 mg PO IN AM AND AT BEDTIME 06/05/19 [ History Confirmed 06/05/19] Insulin GLARGINE(*) [Lantus(*)] 10 units SUBCUT BEDTIME 06/05/19 [History Confirmed 06/05/19] Insulin GLARGINE(*) [Lantus(*)] 35 units SUBCUT QAM 06/05/19 [History Confirmed 06/05/19] Insulin LISPRO* [HumaLOG*] 12 units SUBCUT PC 06/05/19 [History Confirmed ] Metoprolol Succinate XL TAB* [Toprol XL TAB*] 12.5 mg PO BEDTIME 06/05/19 [ History Confirmed 06/05/19] Minerin Cream* [Minerin*] 1 applic TOPICAL BID 06/05/19 [History Confirmed 06/05] Pneumococcal 23-Lynette P-Sac Vac [Pneumovax 23] 25 mcg INJ ONCE 06/05/19 [History Confirmed 06/05/19] traMADol TAB* [Ultram*] 25 mg PO BID 06/05/19 [History Confirmed 06/05/19] PMH/Surg Hx/FS Hx/Imm Hx Endocrine/Hematology History: Reports: Hx Anticoagulant Therapy - coumadin 5mg, Hx Diabetes - type 2 Cardiovascular History: Reports: Hx Congestive Heart Failure - hx of, Hx Hypertension Denies: Hx Hypercholesterolemia Respiratory History: Reports: Hx Asthma, Other Respiratory Problems/Disorders - PT. HAS A KNOWN FB LODGED IN LEFT LUNG AREA FROM PRIOR SURG History: Reports: Hx Renal Disease - current hematuria, Other Problems/ Disorders - Prostate cancer/urinary retention Musculoskeletal History: Reports: Hx Arthritis - osteo, Hx Back Problems - DJ D Sensory History: Reports: Hx Contacts or Glasses, Hx Hearing Aid - not with pt. , Hx Hearing Problem, Other Sensory Impairments Opthamlomology History: Reports: Hx Contacts or Glasses, Other Sensory Impairments Neurological History: Reports: Hx Dementia - alzheimers, Hx Seizures, Other Neuro Impairments/Disorders - PT VERY CONFUSED Psychiatric History: Reports: Hx Anxiety, Hx Depression, Hx Bipolar Disorder Denies: Hx Eating Disorder, Hx of Violent Episodes Against Others - Cancer History Cancer Type, Location and Year: PROSTATE [place] Hx Chemotherapy: No Hx Radiation Therapy: Yes - Surgical History Surgical History: Yes Surgery Procedure, Year, and Place: LEFT KNEE REPLACED/BYPASS GRAFT/? [facility] [place] Hx Anesthesia Reactions: No - Immunization History Date of Tetanus Vaccine: Unk Date of Influenza Vaccine: Unk Infectious Disease History: No Infectious Disease History: Denies: Traveled Outside the [place] in Last 30 Days - Family History Known Family History: Positive: Other - No - Malignant Hypothermia - Social History Alcohol Use: None Hx Substance Use: No Substance Use Type: Reports: None Hx Tobacco Use: No Smoking Status (MU): Never Smoked Tobacco Review of Systems Negative: Chest Pain Positive: Shortness Of Breath Positive: Other - cyanosis Neurological: Other - seizure activity Negative: Headache All Other Systems Reviewed And Are Negative: No - Comments Additional Review of Systems Comments: LEVEL 5 CAVEAT secondary to dementia. Physical Exam - Summary Physical Exam Summary: VITAL SIGNS: Reviewed. GENERAL: Patient is a well-developed and nourished male who is lying comfortable in the stretcher. He appears to be tired and sleepy. Patient is not in any acute respiratory distress. HEAD AND FACE: No signs of trauma. No ecchymosis, hematomas or skull depressions. No sinus tenderness. EYES: PERRLA, EOMI x 2, No injected conjunctiva, no nystagmus. EARS: Hearing grossly intact. Ear canals and tympanic membranes are within normal limits. MOUTH: Oropharynx within normal limits. NECK: Supple, trachea is midline, no adenopathy, no JVD, no carotid bruit, no c- spine tenderness, neck with full ROM. CHEST: Symmetric, no tenderness at palpation. LUNGS: Crackles in the bilateral lungs. No wheezing. CVS: Regular rate and rhythm, S1 and S2 present, no murmurs or gallops appreciated. ABDOMEN: Soft, non-tender. No signs of distention. No rebound, no guarding, and no masses palpated. Bowel sounds are normal. EXTREMITIES: FROM in all major joints, no edema, no cyanosis or clubbing. NEURO: Alert but not oriented. He can answer some questions. No acute neurological deficits. Speech is normal and follows commands. SKIN: Dry and warm. GCS: 15. Triage Information Reviewed: Yes Vital Signs On Initial Exam: Initial Vitals Temp Pulse Resp BP Pulse Ox 97 F 90 16 105/60 99 06/05/19 12:30 06/05/19 12:30 06/05/19 12:30 06/05/19 12:30 06/05/19 12:30 Vital Signs Reviewed: Yes Completion Of Physical Exam Limited Due To: Dementia, Level 5 - [place] Coma Scale Best Eye Response: 4 - Spontaneous Best Motor Response: 6 - Obeys Commands Best Verbal Response: 5 - Oriented Coma Scale Total: 15 Procedures - Sedation Patient Received Moderate/Deep Sedation with Procedure: No Diagnostics - Vital Signs Vital Signs Temp Pulse Resp BP Pulse Ox 06/05/19 12:33 79 16 99 06/05/19 12:30 97 F 90 16 105/60 99 - Laboratory Result Diagrams: 06/05/19 13:10 06/05/19 13:10 Lab Statement: Any lab studies that have been ordered have been reviewed, and results considered in the medical decision making process. - Radiology Chest X-Ray Radiology Interpretation Completed By: Radiologist Summary of Radiographic Findings: Impression: No evidence for active cardiopulmonary disease. ED physician has reviewed this report. - CT Brain CT CT Interpretation Completed By: Radiologist Summary of CT Findings: Brain CT Impression: No evidence for acute intracranial abnormality. ED physician has reviewed this report. - EKG 1253 Cardiac Rate: NL - 83 bpm EKG Rhythm: Sinus Rhythm EKG Comparison: No Significant Change - Similar to previous on 10/16/18. Summary of EKG Findings: EKG at 1253 reveals NSR at [address] elevations. ED physician has reviewed and interpreted this EKG. Re-Evaluation - Re-Evaluation First Eval Re-Evaluation Time: 14:35 Change: Unchanged Comment: We discussed all results and plan for discharge. Course/Dx - Course Assessment/Plan: LEVEL 5 CAVEAT secondary to dementia, is able to answer some questions. Patient is 73 y/o M who has history of seizures with a chief copmlaint of possible seizure as he was unresponsive and became cyanotic with hypoglycemia in the 40s. Glucagon and Dextrose administered. Blood glucose upon arrival is 56. He denies any headache or chest pain, but he now has shortness of breath. Blood work without any significant abnormality except for WBCs of 15 , hemoglobin of 12.1, hematocrit of 37, platelets of 228. CMP was within normal limits except for creatinine of 1.2, ammonia of 59, and total protein of 6.2. Chest x-ray impression without any significant abnormality. It seems that the paramedics also the patient during these episodes thinks that the patient had an aspiration when he was unresponsive. Therefore, this is a risk for pneumonia. The patient was given Rocephin. The patient was placed on D10 since his sugars have been decreasing. I discuss my physical exam and test results with Dr. Ledezma from the hospitalist services, and he agrees to admit the patient to her services. Patient is hemodynamically stable. - Diagnoses Provider Diagnoses: Unresponsive episode, Hypoglycemia, Aspiration pneumonia - Physician Notifications Discussed Care Of Patient With: Jackelyn Ledezma - hospitalist Time Discussed With Above Provider: 14:33 Instructed by Provider To: Admit As Observation - I discussed my physical exam findings and results with Dr. Ledezma, who accepts the patient for admission. Discharge ED - Sign-Out/Discharge Documenting (check all that apply): Patient Departure - Patient accepted for admission by Dr. Ledezma. - Discharge Plan Condition: Stable Disposition: ADMITTED TO [facility] Referrals: Shanna Sharif, DO [Primary Care Provider] - - Billing Disposition and Condition Condition: STABLE Disposition: Admitted to [facility] - Attestation Statements Document Initiated by Robert: Yes Documenting Scribe: Ros Chavez Provider For Whom Robert is Documenting (Include Credential): Dr. Jose Alfredo Lama MD Scribe Attestation: IRos scribed for Dr. Jose Alfredo Lama MD on 06/05/19 at 1528. Scribe Documentation Reviewed: Yes Provider Attestation: The documentation as recorded by the Ros sebastian accurately reflects the service I personally performed and the decisions made by me, Dr. Jose Alfredo Lama MD Status of Robert Document: Ready
[2019-06-05] MEDS: Dextrose 50% VIAL 50 ml IV PRN ×2 (13:02→15:34)
[2019-06-05 13:26] LABS: ABS Basophils 0.1 10^3/ul (0-0.2); ABS Eosinophils 0.2 10^3/ul (0-0.6); ABS Lymphocytes 1.3 10^3/ul (1.0-4.8); ABS Monocytes 1.2 10^3/ul (0-0.8); ABS Neutrophils 12.2 10^3/ul (1.5-7.7); Eosinophil % 1.1 %; Hematocrit 37 % (42-52); Hemoglobin 12.1 g/dL (14.0-18.0); Lymphocyte % 8.6 %; Mean Corpuscular HGB Conc 33 g/dL (31-36); Mean Corpuscular Hemoglobin 31 pg (27-31); Mean Corpuscular Volume 94 fL (80-94); Mean Platelet Volume 8.3 fL (7.4-10.4); Platelet Count 228 10^3/uL (150-450); Red Blood Count 3.88 10^6 /uL (4.18-5.48); Red Cell Distribution Width 14 % (10-15)
[2019-06-05 13:48] LABS: Albumin 3.3 g/dL (3.2-5.2); Albumin/Globulin Ratio 1.1 (1-3); BUN/Creatinine Ratio 14.2 (8-20); Calcium 9.2 mg/dL (8.6-10.3); EGFR African American 71.8 (>60); EGFR Non-African American 59.3 (>60); Globulin 2.9 g/dL (2-4); Magnesium 2.1 mg/dL (1.9-2.7); Total Bilirubin 0.3 mg/dL (0.2-1.0); Total Protein 6.2 g/dL (6.4-8.9)
[2019-06-05 13:53] LABS: Troponin I 0.01 ng/mL (<0.04)
[2019-06-05 14:01] LABS: TSH (Thyroid Stimulating Horm) 2.23 mcIU/mL (0.34-5.60)
[2019-06-05] MEDS ORDERED: cefTRIAXone(*) 1 GM in NS 0.9% 50 ML* 50 ML IVPB ONE (14:10)
[2019-06-05] MEDS ORDERED: NS 0.9% 50 ML* 50 ML ONE (14:23)
[2019-06-05] MEDS ORDERED: D10W 1000 ML BAG* 1,000 ML IV SCH ×3 (15:00→20:05)
[2019-06-05] MEDS ORDERED: Piperacillin/Tazobac ADVAN(*) 3.375 GM in NS 0.9% 100 ML* 100 ML IVPB ONE (15:46)
[2019-06-05] MEDS ORDERED: Ondansetron INJ* 2 MG/ML VIAL IV PRN (15:49)
[2019-06-05] MEDS ORDERED: Zosyn per Pharmacy* NOTE FOLLOW UP SCH (16:00)
[2019-06-05 17:23] LABS: Urine Appearance Turbid; Urine Bacteria 1+ (Absent); Urine Bilirubin Negative (Negative); Urine Blood 3+ (Negative); Urine Color Yellow; Urine Glucose Negative (Negative); Urine Ketones Trace (Negative); Urine Nitrite Negative (Negative); Urine Protein 2+(100 mg/dL) (Negative); Urine Red Blood Cell 3+(>10/hpf) (Absent); Urine Specific Gravity 1.012 (1.010-1.030); Urine Squamous Epithelial Cell Present (Absent); Urine Urobilinogen Negative (Negative); Urine White Blood Cell 3+(>20/hpf) (Absent)
--- NOTE | 2019-06-05 18:50 | HP ---
HISTORY AND PHYSICAL: ADDENDUM: The patient was seen and examined at bedside. Case was reviewed and discussed with Keesha Chisholm, nurse practitioner. Mr. Yee is a 73-year-old male with past medical history of dementia, type 2 diabetes, congestive heart failure, PEs, hypertension, that resides at [facility]. He had [facility] today and he was evaluated by Keesha Chisholm. She sent him to the emergency room and was able to reevaluate him here too. The patient has had recurrent hypoglycemia. Now in the emergency room, he is alert and awake, pleasantly confused, receiving D10 infusion. His last glucose while on the D10 infusion was 105. As per description, there was no seizure activity, but the patient did lose consciousness. It is unclear what caused those episodes at this time. As per report, he has been on the same dose of insulin as before. There was no recent change to other medications or oral intake. He was admitted earlier this year with urinary tract infection and he does have an elevated white cell count and that may be the cause of his hypoglycemia. Urinalysis is pending at this time. In the [facility], he tried to drink some orange juice and there is some report of aspiration, so he will be started on Zosyn for possible aspiration pneumonia. The patient will be admitted to the Intensive Care Unit for close fingerstick monitoring. I am in agreement with the current management. [id number]/[facility] #: [id number] SHAGUFTA
--- NOTE | 2019-06-05 18:58 | HP ---
AMENDED REPORT NOW INCLUDES DESIGNATED COSIGNER - ESIGNED BEFORE ADJUSTMENT ATTENDING PROVIDER ADDENDUM NOW INCLUDED ON THIS REPORT ADMISSION HISTORY AND PHYSICAL: DATE OF ADMISSION: 06/05/19 PRIMARY CARE PROVIDER: Dr. Shanna Sharif. PROVIDER: Keesha Chisholm NP ATTENDING PHYSICIAN: Dr. Puga.* (DICTATED BY KEESHA CHISHOLM NP) CHIEF COMPLAINT: Hypoglycemia and episode of unresponsiveness. HISTORY OF PRESENT ILLNESS: This is a 73-year-old male with a past medical history that is significant for diabetes type 2, dementia and congestive heart failure, who was brought to the emergency room via EMS from [facility]. At [facility], the patient was seen by this provider, blood sugars had been in the 30s, was in a state of delirium, unable to respond to questions, had been flailing, lips were blue, O2 sat anywhere between 88% and 90%. At that time, the patient received some IM glucagon and staff had previously been attempting to give him some thickened orange juice without much success. While in the room , the patient began to choke and then vomited, rolled onto the side and at that point went unresponsive for a second, though quickly became responsive again, still disoriented and at that point that is when EMS was called. Here in the emergency room, Hospital Medicine was contacted to evaluate the patient for admission. In the emergency room, blood sugars remain low in the 30s despite administration of D10 IV at 100 mL an hour. The patient also received a half an amp of D50. Lung sounds were rhonchorous throughout whereas they were clear upon initial evaluation at [facility]. The patient to be admitted to the ICU for further observation. Unable to reach any family member at this time. PAST MEDICAL HISTORY: Dementia; diabetes type 2, insulin dependent; CHF with unknown ejection fraction; hypertension; bipolar disorder; factor V Leiden with 2 PEs, on chronic anticoagulation, IVC filter in place; prostate cancer and status post chemotherapy. PAST SURGICAL HISTORY: Unknown. HOME MEDICATIONS: 1. Tramadol 25 mg p.o. b.i.d. 2. Xarelto 20 mg p.o. q.p.m. 3. Cholecalciferol 2000 units p.o. daily. 4. Torsemide 40 mg p.o. daily. 5. Risperidone 1 mg p.o. b.i.d. 6. Sennosides/docusate 2 caplets p.o. daily p.r.n. 7. Lyrica 25 mg p.o. at bedtime. 8. Potassium 20 mEq p.o. daily. 9. Magnesium hydroxide 30 mL p.o. daily p.r.n. 10. Metoprolol succinate 12.5 mg p.o. at bedtime. 11. Insulin glargine 35 units subcu q.a.m. 12. Insulin glargine 10 units subcu at bedtime. 13. Lactase enzyme 9000 units p.o. q.a.m. 14. Insulin lispro 12 units subcu p.c. 15. Minerin cream 1 application topical b.i.d. 16. Divalproex 750 mg p.o. q.a.m. and q.h.s. 17. Divalproex 50 mg p.o. daily. 18. Lidocaine 4% patch topically daily. 19. Wellbutrin XL 150 p.o. daily. 20. Bisacodyl suppository 10 mg p.r. daily p.r.n. 21. Selenium sulfide 1% topically every . 22. Acetaminophen 650 mg p.o. q.4 hours p.r.n. ALLERGIES: Banana, CARBAMAZEPINE, ERYTHROMYCIN, GABAPENTIN, GEMFIBROZIL, LACTULOSE, LEVOFLOXACIN, MEMANTINE, TERAZOSIN, and TOPIRAMATE. FAMILY HISTORY: Unknown. From previous documentation, the patient's mother had dementia and diabetes. SOCIAL HISTORY: Unable to obtain currently, though previous documentation states no alcohol, tobacco or drug use. 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 He has 2 daughters, who are his surrogate decision makers. REVIEW OF SYSTEMS: Limited due to his cognition. PHYSICAL EXAMINATION GENERAL: This is a well-developed, obese, older gentleman seen resting in bed, very lethargic, sluggish to respond, nonverbal. VITAL SIGNS: Temperature 97.0 degrees Fahrenheit, heart rate 79, respirations 15, O2 sat 97% on room air, and blood pressure 105/60. HEENT: Conjunctivae pink and moist. Extraocular muscles intact. ENT: Mucous membranes moist. Oropharynx is clear. LYMPHATIC: No cervical lymphadenopathy noted. PULMONARY: Noted inspiratory rhonchi throughout all lung underwood, on 2 L of oxygen via nasal cannula. No accessory muscle use noted. CARDIAC: S1, S2. Heart rate regular. No gallops, murmurs, or rubs appreciated. ABDOMEN: Soft, nondistended, nontender with positive bowel sounds x4. GENITOURINARY: No suprapubic or CVA tenderness. NEUROLOGIC: Unable to perform a neurologic exam due to lack of response, though no focal deficits appreciated. Face is symmetrical. Unable to assess orientation at this time. PSYCHIATRIC: Unable to assess due to delirium. SKIN: Pale, but clean, dry, and intact. No rashes noted. DIAGNOSTIC STUDIES/LAB DATA: White blood cell count 15.0, RBCs 3.88, hemoglobin 12.2, hematocrit 37, absolute neutrophils 12.2, absolute monocytes 1.2. Chemistry: Creatinine 1.2, glucose 31, lactic acid 1.9, ammonia 59, and total protein 6.2. Chest x-ray: No evidence for active cardiopulmonary disease. No infiltrates noted at this time. Brain CT: No evidence for acute intracranial abnormalities. An EKG showed sinus rhythm with borderline ventricular electrical delay. ASSESSMENT AND PLAN: My impression is that this is a 73-year-old male with a past medical history significant for hypertension, congestive heart failure and diabetes type 2, who is admitted to [facility] on 06/05/19 for hypoglycemia and possible aspiration pneumonia. 1. Hypoglycemia. D10 infusing at 150 mL per hour. Fingersticks q.1 hour. To reevaluate once blood sugars are above 200. We will hold on any insulin. 2. Possible aspiration pneumonia. Place on Zosyn per pharmacy protocol. Swallow evaluation before allowing the patient to eat. 3. Congestive heart failure. Hold torsemide for now until swallow eval complete. IV furosemide ordered instead until able to take PO. 4. Bipolar disorder. We will hold Depakote and Risperdal until swallow eval. 5. History of pulmonary embolism x2. The patient has an IVC filter. We will hold Xarelto until swallow eval completed. Place the patient on heparin subcu. 6. DVT prophylaxis: SCDs and heparin subcu. 7. Probable UTI: Already receiving IV zosyn, which will provide appropriate coverage. 8. Code status: He is a DNR/DNI. 9. Disposition: The patient is admitted to the ICU. Condition is critical. TIME SPENT: Time spent on the patient approximately 60 minutes with about 30% of it was spent [id number] with the patient. Plan was discussed with my attending, Dr. Puga, and she is in agreement. KEESAH CHISHOLM, MARY ADDENDUM: The patient was seen and examined at bedside. Case was reviewed and discussed with Keesha Chisholm, nurse practitioner. Mr. Yee is a 73-year-old male with past medical history of dementia, type 2 diabetes, congestive heart failure, PEs, hypertension, that resides at [facility]. [facility] and he was evaluated by Keesha Chisholm. She sent him to the emergency room and was able to reevaluate him here too. The patient has had recurrent hypoglycemia. Now in the emergency room, he is alert and awake, pleasantly confused, receiving D10 infusion. His last glucose while on the D10 infusion was 105. As per description, there was no seizure activity, but the patient did lose consciousness. It is unclear what caused those episodes at this time. As per report, he has been on the same dose of insulin as before. There was no recent change to other medications or oral intake. He was admitted earlier this year with urinary tract infection and he does have an elevated white cell count and that may be the cause of his hypoglycemia. Urinalysis is pending at this time. [facility] the jail, he tried to drink some orange juice and there is some report of aspiration, so he will be started on Zosyn for possible aspiration pneumonia. The patient will be admitted to the Intensive Care Unit for close fingerstick monitoring. I am in agreement with the current management. SARA Puga MD [id number]/[facility] #: [id number] Jose [id number]/[facility] #: [id number] SHAGUFTA
[2019-06-05] MEDS: ZOSYN 3.375 GM Q8H per EXTENDED INFUSION IVPB SCH ×2 (20:39)
[2019-06-05] MEDS: Heparin VIAL(*) 5000 UNITS/ML VIAL (FIVE THOUSAND) SUBCUT SCH (23:23)
[2019-06-06] MEDS ORDERED: D5LR 1000 ML BAG* 1,000 ML IV SCH (04:00)
[2019-06-06] MEDS: ZOSYN 3.375 GM Q8H per EXTENDED INFUSION IVPB SCH ×6 (04:07→21:21)
[2019-06-06 05:11] LABS: ABS Eosinophils 0.1 10^3/ul (0-0.6); ABS Lymphocytes 1.7 10^3/ul (1.0-4.8); ABS Monocytes 0.8 10^3/ul (0-0.8); Hematocrit 36 % (42-52); Mean Corpuscular HGB Conc 34 g/dL (31-36); Mean Corpuscular Hemoglobin 32 pg (27-31); Mean Corpuscular Volume 94 fL (80-94); Mean Platelet Volume 8.3 fL (7.4-10.4); Platelet Count 217 10^3/uL (150-450); Red Blood Count 3.78 10^6 /uL (4.18-5.48); Red Cell Distribution Width 15 % (10-15); White Blood Count 6.7 10^3/uL (3.5-10.8)
[2019-06-06 05:39] LABS: BUN/Creatinine Ratio 14.5 (8-20); Calcium 9.2 mg/dL (8.6-10.3); EGFR African American 79.4 (>60); EGFR Non-African American 65.6 (>60)
[2019-06-06] MEDS: Heparin VIAL(*) 5000 UNITS/ML VIAL (FIVE THOUSAND) SUBCUT SCH ×3 (05:48→21:39)
[2019-06-06] MEDS ORDERED: Furosemide IV* 10 MG/ML 2 ML VIAL (20 MG) IV SCH (09:00)
[2019-06-06] MEDS ORDERED: NS 0.9% 500 ML* 500 ML IV ONE (13:47)
[2019-06-06] MEDS ORDERED: Bisacodyl SUPP* 10 MG SUPP PR PRN (14:14)
[2019-06-06] MEDS ORDERED: Senna TAB 8.6 mg* TAB PO PRN (14:14)
[2019-06-06] MEDS ORDERED: Acetaminophen TAB* 325 MG PO PRN (14:14)
[2019-06-06] MEDS ORDERED: Metoprolol Succinate XL TAB* 25 MG PO SCH (14:17)
[2019-06-06] MEDS ORDERED: Docusate CAP* 100 MG PO PRN (14:44)
[2019-06-06] MEDS: BuPROPion XL* 150 MG TAB.XL PO SCH (15:16)
[2019-06-06] MEDS: risperiDONE TAB* 1 MG PO SCH ×2 (15:16→21:33)
[2019-06-06] MEDS: Divalproex DR TAB(*) 500 MG PO SCH (15:16)
[2019-06-06] MEDS: Metoprolol Succinate XL TAB* 25 MG PO SCH (15:16)
[2019-06-06] MEDS ORDERED: Metoprolol Tartrate IV* 1 MG/ML 5 ML VIAL IV ONE (17:24)
[2019-06-06] MEDS: Rivaroxaban TAB(*) 20 MG TAB PO SCH (18:13)
[2019-06-06] MEDS ORDERED: NS 0.9% 1000 ML** 1,000 ML IV SCH (18:30)
[2019-06-06] MEDS: traMADol TAB* 50 MG PO SCH (21:29)
[2019-06-06] MEDS: Pregabalin CAP(*) 25 MG PO SCH (21:33)
[2019-06-06] MEDS: Divalproex DR TAB(*) 250 MG PO SCH (21:36)
[2019-06-06] MEDS: Insulin LISPRO* 1 UNITS UNIT SUBCUT SCH ×2 (21:50→22:01)
[2019-06-06] MEDS: Nystatin CREAM* 15 GM TUBE TOPICAL SCH (21:52)
[2019-06-06] MEDS: Insulin GLARGINE(*) 1 UNITS UNIT SUBCUT SCH (22:01)
[2019-06-07] MEDS: ZOSYN 3.375 GM Q8H per EXTENDED INFUSION IVPB SCH ×6 (04:50→20:21)
[2019-06-07] MEDS: Heparin VIAL(*) 5000 UNITS/ML VIAL (FIVE THOUSAND) SUBCUT SCH ×2 (06:09→14:07)
[2019-06-07] MEDS ORDERED: Torsemide TAB* 20 MG PO SCH (09:00)
[2019-06-07] MEDS: Insulin LISPRO* 1 UNITS UNIT SUBCUT SCH ×4 (09:46→21:34)
[2019-06-07] MEDS: traMADol TAB* 50 MG PO SCH ×2 (09:54→19:21)
[2019-06-07] MEDS: Nystatin CREAM* 15 GM TUBE TOPICAL SCH ×2 (09:55→21:42)
[2019-06-07] MEDS: BuPROPion XL* 150 MG TAB.XL PO SCH (09:56)
[2019-06-07] MEDS: Potassium Chlor TAB* 20 MEQ TAB.ER PO SCH (09:56)
[2019-06-07] MEDS: Divalproex DR TAB(*) 250 MG PO SCH ×2 (09:56→19:21)
[2019-06-07] MEDS: risperiDONE TAB* 1 MG PO SCH ×2 (09:57→19:20)
[2019-06-07] MEDS: Cholecalciferol TAB* 1000 UNITS PO SCH (09:57)
--- NOTE | 2019-06-07 10:41 | PN ---
Subjective Date of Service: 06/07/19 Interval History: Now having loose BM. No abdominal pain. No further episodes of hypoglycemia. Family History: Unchanged from Admission Social History: Unchanged from Admission Past Medical History: Unchanged from Admission Objective Active Medications: Acetaminophen (Tylenol Tab*) 650 mg PO Q4H PRN PRN Reason: PAIN Last Admin: 06/06/19 15:17 Dose: 650 mg Bisacodyl (Dulcolax Supp*) 10 mg [place] DAILY PRN PRN Reason: CONSTIPATION Bupropion HCl (Wellbutrin Xl *) 150 mg PO DAILY [facility] Last Admin: 06/07/19 09:56 Dose: 150 mg Cholecalciferol (Vitamin D Tab*) 2,000 units PO DAILY [facility] Last Admin: 06/07/19 09:57 Dose: 2,000 units Dextrose (Dextrose 50% Vial 50 Ml*) 25 ml IV ONCE PRN PRN Reason: hypoglycemia Last Admin: 06/05/19 15:34 Dose: 25 ml Divalproex Sodium (Depakote Dr Tab(*)) 500 mg PO 1400 [facility] Last Admin: 06/06/19 15:16 Dose: 500 mg Divalproex Sodium (Depakote Dr Tab(*)) 750 mg PO BID [facility] Last Admin: 06/07/19 09:56 Dose: 750 mg Docusate Sodium (Colace Cap*) 100 mg PO DAILY PRN PRN Reason: CONSTIPATION Last Admin: 06/06/19 15:17 Dose: 100 mg Heparin Sodium (Porcine) (Heparin Vial(*)) 5,000 units SUBCUT Q8HR [facility] Last Admin: 06/07/19 06:09 Dose: 5,000 units Piperacillin Sod/Tazobactam (Sod 3.375 gm/ Sodium Chloride) 100 mls @ 25 mls/ hr IVPB Q8H [facility] Last Admin: 06/07/19 04:50 Dose: 25 mls/hr Insulin Glargine (Lantus(*)) 10 units SUBCUT Q24H [facility] Last Admin: 06/06/19 22:01 Dose: 10 unit Insulin Human Lispro (Humalog*) 0 units SUBCUT ACHS [facility]; Protocol Last Admin: 06/07/19 09:46 Dose: Not Given Metoprolol Succinate (Toprol Xl Tab*) 12.5 mg PO 2100 [facility] Last Admin: 06/06/19 15:16 Dose: 12.5 mg Nystatin (Nystatin Cream*) 1 applic TOPICAL BID [facility] Last Admin: 06/07/19 09:55 Dose: 1 admin Ondansetron HCl (Zofran Inj*) 4 mg IV Q4H PRN PRN Reason: NAUSEA/VOMITING Pharmacy Consult (Zosyn Per Pharmacy*) 1 note FOLLOW UP .ZOSYN PER PHARMACY [facility] Potassium Chloride (Klor Con Er Tab*) 20 meq PO DAILY [facility] Last Admin: 06/07/19 09:56 Dose: 20 meq Pregabalin (Lyrica Cap(*)) 25 mg PO BEDTIME [facility] Last Admin: 06/06/19 21:33 Dose: 25 mg Risperidone (Risperdal*) 1 mg PO BID [facility] Last Admin: 06/07/19 09:57 Dose: 1 mg Rivaroxaban (Xarelto(*)) 20 mg PO QPM [facility] Last Admin: 06/06/19 18:13 Dose: 20 mg Senna (Senokot 8.6 Mg Tab*) 2 tab PO DAILY PRN PRN Reason: CONSTIPATION Last Admin: 06/06/19 15:17 Dose: 2 tab Torsemide (Demadex*) 40 mg PO DAILY [facility] Last Admin: 06/07/19 09:57 Dose: 40 mg Tramadol HCl (Ultram*) 25 mg PO BID [facility] Last Admin: 06/07/19 09:54 Dose: 25 mg Vital Signs - 8 hr 06/07/19 06/07/19 06/07/19 03:03 07:15 08:00 Temperature 98.4 F 97.4 F Pulse Rate 73 72 Respiratory 16 16 16 Rate Blood Pressure 115/49 128/57 (mmHg) O2 Sat by Pulse 100 95 Oximetry 06/07/19 09:54 Temperature Pulse Rate Respiratory 16 Rate Blood Pressure (mmHg) O2 Sat by Pulse Oximetry Oxygen Devices in Use Now: None Appearance: obese male, lying in bed, not in distress Eyes: PERRLA Respiratory: Symmetrical Chest Expansion and Respiratory Effort, Clear to Auscultation Cardiovascular: NL Sounds; No Murmurs; No JVD, RRR Abdominal: NL Sounds; No Tenderness; No Distention, No Hepatosplenomegaly Neurological: Alert and Oriented x 3 Result Diagrams: 06/06/19 04:50 06/06/19 04:50 Microbiology and Other Data: Microbiology 06/05/19 18:05 Nasal Screen MRSA (PCR) - Final Nasal Mrsa Not Detected Assess/Plan/Problems-Billing Assessment: - Patient Problems (1) Hypoglycemia Current Visit: Yes Status: Acute Code(s): E16.2 - HYPOGLYCEMIA, UNSPECIFIED SNOMED Code(s): 207655307 Comment: required D10, now resolved. etiology unclear- could be he received extra insulin vs. decreased PO intake and getting same amount of insulin? (2) DM II (diabetes mellitus, type II), controlled Current Visit: No Status: Acute Code(s): E11.9 - TYPE 2 DIABETES MELLITUS WITHOUT COMPLICATIONS SNOMED Code(s): 42973196 Comment: at this point, going easy with the insulin, continue lantus 10 units daily, monitor fingersticks. (3) Aspiration pneumonia Current Visit: Yes Status: Acute Code(s): J69.0 - PNEUMONITIS DUE TO INHALATION OF FOOD AND VOMIT SNOMED Code(s): 717898375 (4) CHF (congestive heart failure) Current Visit: No Status: Acute Code(s): I50.9 - HEART FAILURE, UNSPECIFIED SNOMED Code(s): 15005702 Comment: euvolemic continue torsemide, metoprolol. D/C IV fluids, decrease torsemide dose to 20mg from 40mg given he also has diarrhea. (5) Factor 5 Leiden mutation, heterozygous Current Visit: No Status: Acute Code(s): D68.51 - ACTIVATED PROTEIN C RESISTANCE SNOMED Code(s): 491070931 Comment: - History 2 PEs, IVC filter in place - Continue xarelto. (6) Bipolar disease, chronic Current Visit: Yes Status: Acute Code(s): F31.9 - BIPOLAR DISORDER, UNSPECIFIED SNOMED Code(s): 96849917 Comment: continue home medications. (7) Diarrhea Current Visit: Yes Status: Acute Code(s): R19.7 - DIARRHEA, UNSPECIFIED SNOMED Code(s): 90993165 Comment: could be due to antibiotics, will monitor, will order stool for c.diff- to send sample after 3 loose BM.
[2019-06-07] MEDS: Divalproex DR TAB(*) 500 MG PO SCH (14:07)
[2019-06-07] MEDS: Rivaroxaban TAB(*) 20 MG TAB PO SCH (17:48)
[2019-06-07] MEDS: Pregabalin CAP(*) 25 MG PO SCH (19:20)
[2019-06-07] MEDS: Metoprolol Succinate XL TAB* 25 MG PO SCH (19:20)
[2019-06-07] MEDS: Insulin GLARGINE(*) 1 UNITS UNIT SUBCUT SCH (21:35)
[2019-06-08] MEDS: ZOSYN 3.375 GM Q8H per EXTENDED INFUSION IVPB SCH ×6 (04:16→21:41)
[2019-06-08 06:39] LABS: Hematocrit 32 % (42-52); Hemoglobin 10.7 g/dL (14.0-18.0); Mean Corpuscular HGB Conc 33 g/dL (31-36); Mean Corpuscular Hemoglobin 32 pg (27-31); Mean Corpuscular Volume 95 fL (80-94); Mean Platelet Volume 8.4 fL (7.4-10.4); Platelet Count 201 10^3/uL (150-450); Red Cell Distribution Width 15 % (10-15); White Blood Count 6.4 10^3/uL (3.5-10.8)
[2019-06-08 06:52] LABS: BUN/Creatinine Ratio 14.2 (8-20); Calcium 8.6 mg/dL (8.6-10.3); EGFR African American 67.3 (>60); EGFR Non-African American 55.6 (>60); Potassium 4.2 mmol/L (3.5-5.0)
[2019-06-08] MEDS: Cholecalciferol TAB* 1000 UNITS PO SCH ×2 (09:51→10:22)
[2019-06-08] MEDS: Potassium Chlor TAB* 20 MEQ TAB.ER PO SCH (09:52)
[2019-06-08] MEDS: traMADol TAB* 50 MG PO SCH ×2 (09:52→21:46)
[2019-06-08] MEDS: BuPROPion XL* 150 MG TAB.XL PO SCH ×2 (09:52→10:22)
[2019-06-08] MEDS: Divalproex DR TAB(*) 250 MG PO SCH ×2 (09:56→10:22)
[2019-06-08] MEDS: risperiDONE TAB* 1 MG PO SCH ×3 (09:56→21:46)
[2019-06-08] MEDS: Torsemide TAB* 20 MG PO SCH ×2 (09:56→10:22)
[2019-06-08] MEDS: Insulin LISPRO* 1 UNITS UNIT SUBCUT SCH ×3 (09:59→18:00)
[2019-06-08] MEDS: Nystatin CREAM* 15 GM TUBE TOPICAL SCH ×2 (10:00→21:39)
[2019-06-08] MEDS ORDERED: Dextrose 50% VIAL 50 ml IV PUSH PRN (10:51)
--- NOTE | 2019-06-08 10:54 | PN ---
Subjective Date of Service: 06/08/19 Interval History: No acute issues overnight Diarrhea has improved Complaints of cough, hard to expectorate the sputum Family History: Unchanged from Admission Social History: Unchanged from Admission Past Medical History: Unchanged from Admission Objective Active Medications: Acetaminophen (Tylenol Tab*) 650 mg PO Q4H PRN PRN Reason: PAIN Last Admin: 06/06/19 15:17 Dose: 650 mg Bisacodyl (Dulcolax Supp*) 10 mg MD DAILY PRN PRN Reason: CONSTIPATION Bupropion HCl (Wellbutrin Xl *) 150 mg PO DAILY [facility] Last Admin: 06/08/19 10:22 Dose: Not Given Cholecalciferol (Vitamin D Tab*) 2,000 units PO DAILY [facility] Last Admin: 06/08/19 10:22 Dose: Not Given Dextrose (Dextrose 50% Vial 50 Ml*) 25 ml IV ONCE PRN PRN Reason: hypoglycemia Last Admin: 06/05/19 15:34 Dose: 25 ml Dextrose (Dextrose 50% Vial 50 Ml*) 25 ml IV PUSH .FOR FS < 60 - SS PRN PRN Reason: FS < 60 Divalproex Sodium (Depakote Sprinkle Cap*) 500 mg PO 1400 [place] Divalproex Sodium (Depakote Sprinkle Cap*) 750 mg PO BID [place] Docusate Sodium (Colace Cap*) 100 mg PO DAILY PRN PRN Reason: CONSTIPATION Last Admin: 06/06/19 15:17 Dose: 100 mg Guaifenesin (Mucinex*) 600 mg PO BID [facility] Piperacillin Sod/Tazobactam (Sod 3.375 gm/ Sodium Chloride) 100 mls @ 25 mls/ hr IVPB Q8H [facility] Last Admin: 06/08/19 04:16 Dose: 25 mls/hr Insulin Glargine (Lantus(*)) 10 units SUBCUT Q24H [facility] Last Admin: 06/07/19 21:35 Dose: 10 unit Insulin Human Lispro (Humalog*) 0 units SUBCUT ACHS [facility]; Protocol Last Admin: 06/08/19 09:59 Dose: 6 unit Insulin Human Lispro (Humalog*) 0 units SUBCUT AC [facility]; Protocol Metoprolol Succinate (Toprol Xl Tab*) 12.5 mg PO 2100 [facility] Last Admin: 06/07/19 19:20 Dose: 12.5 mg Nystatin (Nystatin Cream*) 1 applic TOPICAL BID [facility] Last Admin: 06/08/19 10:00 Dose: 1 admin Ondansetron HCl (Zofran Inj*) 4 mg IV Q4H PRN PRN Reason: NAUSEA/VOMITING Pharmacy Consult (Zosyn Per Pharmacy*) 1 note FOLLOW UP .ZOSYN PER PHARMACY [facility] Potassium Chloride (Klor Con Er Tab*) 20 meq PO DAILY [facility] Last Admin: 06/08/19 09:52 Dose: 20 meq Pregabalin (Lyrica Cap(*)) 25 mg PO BEDTIME [facility] Last Admin: 06/07/19 19:20 Dose: 25 mg Risperidone (Risperdal*) 1 mg PO BID [facility] Last Admin: 06/08/19 10:22 Dose: Not Given Rivaroxaban (Xarelto(*)) 20 mg PO QPM [facility] Last Admin: 06/07/19 17:48 Dose: 20 mg Senna (Senokot 8.6 Mg Tab*) 2 tab PO DAILY PRN PRN Reason: CONSTIPATION Last Admin: 06/06/19 15:17 Dose: 2 tab Torsemide (Demadex*) 20 mg PO DAILY [facility] Last Admin: 06/08/19 10:22 Dose: Not Given Tramadol HCl (Ultram*) 25 mg PO BID [facility] Last Admin: 06/08/19 09:52 Dose: 25 mg Vital Signs - 8 hr 06/08/19 06/08/19 06/08/19 03:01 07:53 09:52 Temperature 98.1 F Pulse Rate 88 Respiratory 14 18 16 Rate Blood Pressure 102/46 (mmHg) O2 Sat by Pulse 98 Oximetry Oxygen Devices in Use Now: None Appearance: Lying in bed, not in distress Eyes: PERRLA Respiratory: - - coarse breath sounds with rhonchi Cardiovascular: RRR, - - 1+ pitting edema bilateral lower extremities. Abdominal: No Hepatosplenomegaly Neurological: Alert and Oriented x 3 Result Diagrams: 06/08/19 06:07 06/08/19 06:07 Microbiology and Other Data: Microbiology 06/05/19 18:05 Nasal Screen MRSA (PCR) - Final Nasal Mrsa Not Detected Assess/Plan/Problems-Billing Assessment: - Patient Problems (1) Hypoglycemia Current Visit: Yes Status: Acute Code(s): E16.2 - HYPOGLYCEMIA, UNSPECIFIED SNOMED Code(s): 138725001 Comment: required D10, now resolved. etiology unclear- could be he received extra insulin vs. decreased PO intake and getting same amount of insulin? (2) DM II (diabetes mellitus, type II), controlled Current Visit: No Status: Acute Code(s): E11.9 - TYPE 2 DIABETES MELLITUS WITHOUT COMPLICATIONS SNOMED Code(s): 54168485 Comment: at this point, going easy with the insulin, continue lantus 10 units daily, monitor fingersticks. fingersticks are now getting into the 200+ range, will add low sliding scale humalog for mealtime coverage (3) Aspiration pneumonia Current Visit: Yes Status: Acute Code(s): J69.0 - PNEUMONITIS DUE TO INHALATION OF FOOD AND VOMIT SNOMED Code(s): 552444270 Comment: continue zosyn. (4) CHF (congestive heart failure) Current Visit: No Status: Acute Code(s): I50.9 - HEART FAILURE, UNSPECIFIED SNOMED Code(s): 09369026 Comment: euvolemic continue torsemide, metoprolol. D/C IV fluids, decreased torsemide dose to 20mg from 40mg given he also has diarrhea. (5) Factor 5 Leiden mutation, heterozygous Current Visit: No Status: Acute Code(s): D68.51 - ACTIVATED PROTEIN C RESISTANCE SNOMED Code(s): 354631305 Comment: - History 2 PEs, IVC filter in place - Continue xarelto. (6) Bipolar disease, chronic Current Visit: Yes Status: Acute Code(s): F31.9 - BIPOLAR DISORDER, UNSPECIFIED SNOMED Code(s): 53205108 Comment: continue home medications. (7) Diarrhea Current Visit: Yes Status: Acute Code(s): R19.7 - DIARRHEA, UNSPECIFIED SNOMED Code(s): 35550419 Comment: likely antibiotics associated. C.diff is negative.
[2019-06-08] MEDS: Divalproex Sprinkle CAP* 125 MG PO SCH ×2 (14:12→21:44)
--- NOTE | 2019-06-08 14:38 | PN ---
Subjective Date of Service: 06/06/19 Interval History: Patient was seen sitting up in bed in the ICU. More alert and responsive today, immediately made eye contact upon entering room and was able to answer questions. Stated he was feeling much better than yesterday. ROS limited due to his baseline cognition, would answer yes to all questions. For example when asked if he had chest pain, he nodded, but when he was asked to point to where it hurt he stated he was in no pain. No signs of seizure-like activity. Family History: Unchanged from Admission Social History: Unchanged from Admission Past Medical History: Unchanged from Admission Objective Active Medications: Acetaminophen (Tylenol Tab*) 650 mg PO Q4H PRN PRN Reason: PAIN Last Admin: 06/06/19 15:17 Dose: 650 mg Bisacodyl (Dulcolax Supp*) 10 mg UT DAILY PRN PRN Reason: CONSTIPATION Bupropion HCl (Wellbutrin Xl *) 150 mg PO DAILY [facility] Last Admin: 06/08/19 10:22 Dose: Not Given Cholecalciferol (Vitamin D Tab*) 2,000 units PO DAILY [facility] Last Admin: 06/08/19 10:22 Dose: Not Given Dextrose (Dextrose 50% Vial 50 Ml*) 25 ml IV PUSH .FOR FS < 60 - SS PRN PRN Reason: FS < 60 Divalproex Sodium (Depakote Sprinkle Cap*) 500 mg PO 1400 [facility] Last Admin: 06/08/19 14:12 Dose: 500 mg Divalproex Sodium (Depakote Sprinkle Cap*) 750 mg PO BID [facility] Docusate Sodium (Colace Cap*) 100 mg PO DAILY PRN PRN Reason: CONSTIPATION Last Admin: 06/06/19 15:17 Dose: 100 mg Guaifenesin (Mucinex*) 600 mg PO BID [facility] Piperacillin Sod/Tazobactam (Sod 3.375 gm/ Sodium Chloride) 100 mls @ 25 mls/ hr IVPB Q8H [facility] Last Admin: 06/08/19 14:23 Dose: 25 mls/hr Insulin Glargine (Lantus(*)) 10 units SUBCUT Q24H [facility] Last Admin: 06/07/19 21:35 Dose: 10 unit Insulin Human Lispro (Humalog*) 0 units SUBCUT [facility]; Protocol Last Admin: 06/08/19 13:54 Dose: Not Given Metoprolol Succinate (Toprol Xl Tab*) 12.5 mg PO 2100 [facility] Last Admin: 06/07/19 19:20 Dose: 12.5 mg Nystatin (Nystatin Cream*) 1 applic TOPICAL BID [facility] Last Admin: 06/08/19 10:00 Dose: 1 admin Ondansetron HCl (Zofran Inj*) 4 mg IV Q4H PRN PRN Reason: NAUSEA/VOMITING Pharmacy Consult (Zosyn Per Pharmacy*) 1 note FOLLOW UP .ZOSYN PER PHARMACY [facility] Potassium Chloride (Klor Con Er Tab*) 20 meq PO DAILY [facility] Last Admin: 06/08/19 09:52 Dose: 20 meq Pregabalin (Lyrica Cap(*)) 25 mg PO BEDTIME [facility] Last Admin: 06/07/19 19:20 Dose: 25 mg Risperidone (Risperdal*) 1 mg PO BID [facility] Last Admin: 06/08/19 10:22 Dose: Not Given Rivaroxaban (Xarelto(*)) 20 mg PO QPM [facility] Last Admin: 06/07/19 17:48 Dose: 20 mg Senna (Senokot 8.6 Mg Tab*) 2 tab PO DAILY PRN PRN Reason: CONSTIPATION Last Admin: 06/06/19 15:17 Dose: 2 tab Torsemide (Demadex*) 20 mg PO DAILY [facility] Last Admin: 06/08/19 10:22 Dose: Not Given Tramadol HCl (Ultram*) 25 mg PO BID [facility] Last Admin: 06/08/19 09:52 Dose: 25 mg Vital Signs - 8 hr 06/08/19 06/08/19 06/08/19 07:15 07:53 09:52 Temperature 97.7 F Pulse Rate 83 Respiratory 16 18 16 Rate Blood Pressure 132/58 (mmHg) O2 Sat by Pulse 95 Oximetry 06/08/19 14:11 Temperature Pulse Rate Respiratory 16 Rate Blood Pressure (mmHg) O2 Sat by Pulse Oximetry Oxygen Devices in Use Now: None Appearance: This is an obese, well developed older gentleman in no acute distress. Eyes: No Scleral Icterus, PERRLA Ears/Nose/Mouth/Throat: NL Teeth, Lips, Gums, Clear Oropharnyx, Mucous Membranes Moist Neck: NL Appearance and Movements; NL JVP, Trachea Midline Respiratory: Symmetrical Chest Expansion and Respiratory Effort, Clear to Auscultation Cardiovascular: NL Sounds; No Murmurs; No JVD, RRR, No Edema Abdominal: NL Sounds; No Tenderness; No Distention Lymphatic: No Cervical Adenopathy Extremities: No Edema, No Clubbing, Cyanosis Skin: No Rash or Ulcers, No Nodules or Sclerosis Neurological: NL Sensation, NL Muscle Strength and Tone, - - Oriented to self and place only. Lines/Tubes/Other Access: Clean, Dry and Intact Peripheral IV Result Diagrams: 06/08/19 06:07 06/08/19 06:07 Microbiology and Other Data: Microbiology Assess/Plan/Problems-Billing Assessment: This is a 73 year old male with a past medical history significant for diabetes type 2 dementia and hypertension who was admitted on 06/05/19 for hypoglycemia, possible aspiration pneumonia and UTI. - Patient Problems (1) Hypoglycemia Current Visit: Yes Status: Acute Code(s): E16.2 - HYPOGLYCEMIA, UNSPECIFIED SNOMED Code(s): 577677868 Comment: -Initially required D10, has now been switched to D5LR. Blood glucose monitoring has been changed from Q1H to ACHS, sugars remaining above 100 consistently. Initiated insulin glargine 10 units for tonight and sliding scale lispro. -Unsure as to etiology of hyoglycemia. It seems it would be unlikely to be caused by a UTI. It is possible that patient had a decrease in oral intake or possibly received extra insulin. (2) Aspiration pneumonia Current Visit: Yes Status: Acute Code(s): J69.0 - PNEUMONITIS DUE TO INHALATION OF FOOD AND VOMIT SNOMED Code(s): 836950462 Comment: Yun treated with zosyn. (3) UTI (urinary tract infection) Current Visit: Yes Status: Acute Comment: -Zosyn that is being used to treat aspiration pneumonia will also cover for UTI. (4) Bipolar disease, chronic Current Visit: Yes Status: Acute Code(s): F31.9 - BIPOLAR DISORDER, UNSPECIFIED SNOMED Code(s): 97945721 Comment: Continue depakote abd risperidone. (5) CHF (congestive heart failure) Current Visit: No Status: Acute Code(s): I50.9 - HEART FAILURE, UNSPECIFIED SNOMED Code(s): 31374705 Comment: -Euvolemic -Continue torsemide, metoprolol. (6) Factor 5 Leiden mutation, heterozygous Current Visit: No Status: Acute Code(s): D68.51 - ACTIVATED PROTEIN C RESISTANCE SNOMED Code(s): 950615071 Comment: - History 2 PEs, IVC filter in place - Continue xarelto. (7) DNR (do not resuscitate) Current Visit: No Status: Acute Comment: - DNR/ DNI (8) DVT prophylaxis Current Visit: No Status: Acute Code(s): EUO9677 - SNOMED Code(s): 640388596 Comment: -scd's, xarelto Status and Disposition: Condition: Fair. Disposition: Inpatient, will transfer out of ICU to medical floor. Counseling and/or Coordination of Care Minutes: Time spent on patient 40 minutes with half of it spent face to face. Attending: Jackson Gold
[2019-06-08] MEDS: Rivaroxaban TAB(*) 20 MG TAB PO SCH (18:08)
[2019-06-08] MEDS: guaiFENesin ER TAB 600 MG PO SCH (21:44)
[2019-06-08] MEDS: Pregabalin CAP(*) 25 MG PO SCH (21:45)
[2019-06-08] MEDS: Metoprolol Succinate XL TAB* 25 MG PO SCH (21:45)
[2019-06-08] MEDS: Insulin GLARGINE(*) 1 UNITS UNIT SUBCUT SCH (21:46)
[2019-06-09] MEDS: ZOSYN 3.375 GM Q8H per EXTENDED INFUSION IVPB SCH ×4 (05:10→12:04)
[2019-06-09] MEDS: Insulin LISPRO* 1 UNITS UNIT SUBCUT SCH ×3 (07:47→17:58)
[2019-06-09] MEDS: BuPROPion XL* 150 MG TAB.XL PO SCH (07:47)
[2019-06-09] MEDS: risperiDONE TAB* 1 MG PO SCH (07:47)
[2019-06-09] MEDS: traMADol TAB* 50 MG PO SCH (07:48)
[2019-06-09] MEDS: Cholecalciferol TAB* 1000 UNITS PO SCH (07:51)
[2019-06-09] MEDS: Torsemide TAB* 20 MG PO SCH (07:52)
[2019-06-09] MEDS: guaiFENesin ER TAB 600 MG PO SCH (07:54)
[2019-06-09] MEDS: Potassium Chlor TAB* 20 MEQ TAB.ER PO SCH (07:55)
[2019-06-09] MEDS: Divalproex Sprinkle CAP* 125 MG PO SCH ×2 (07:56→15:39)
[2019-06-09] MEDS: Nystatin CREAM* 15 GM TUBE TOPICAL SCH (08:00)
[2019-06-09 13:21] VITALS: BP 130/53
--- NOTE | 2019-06-09 17:19 | DS ---
CC: Dr. Shanna Sharif * DISCHARGE SUMMARY: DATE OF ADMISSION: 06/05/19 DATE OF DISCHARGE: 06/09/19 PRIMARY CARE PROVIDER: Dr. Shanna Sharif. MY ATTENDING WHILE IN THE HOSPITAL: Dr. Stephen Solorzano.* (DICTATED BY CECILE DISLA) PRIMARY DISCHARGE DIAGNOSES: 1. Aspiration pneumonia/pneumonitis. 2. Urinary tract infection due to enterococcus. 3. Hypoglycemia iatrogenic. 4. Diarrhea, resolved. SECONDARY DISCHARGE DIAGNOSES: 1. Dementia advanced. 2. Diabetes mellitus type 2. 3. History of factor V Leiden. 4. History of deep venous thrombosis and pulmonary emboli. 5. Heart failure, most recent ejection fraction preserved at 50%. 6. History of prostate cancer status post chemotherapy. 7. Bipolar disorder. STUDIES DONE WHILE IN THE HOSPITAL: Brain CT from 06/05/19 read as no evidence of acute intracranial abnormality. Chest X-ray from 06/05/19 read as, no evidence for acute cardiopulmonary disease. MEDICATIONS AT DISCHARGE: 1. Tylenol 650 mg p.o. q.4 hours as needed. 2. Dulcolax suppository 10 mg p.r. daily as needed. 3. Bupropion 150 mg p.o. daily. 4. Rivaroxaban 20 mg p.o. daily. 5. Vitamin D 2000 units p.o. daily. 6. Senna/docusate 2 tabs p.o. daily as needed. 7. Risperdal 1 mg p.o. b.i.d. 8. Potassium chloride 20 mEq p.o. daily. 9. Magnesium hydroxide 30 mL p.o. daily as needed. 10. Lactase 9000 units p.o. daily as needed. 11. Lidocaine patch topical daily. 12. Selenium sulfide 1 application topical daily. 13. Tylenol 1000 mg p.o. b.i.d. as needed. 14. Pregabalin 25 mg p.o. at bedtime. 15. Torsemide 40 mg p.o. daily. 16. Tramadol 25 mg p.o. b.i.d. 17. Minerin 1 application topical b.i.d. 18. Depakote delayed release 750 mg p.o. b.i.d. 19. Depakote 500 mg p.o. daily. 20. Metoprolol succinate 12.5 mg p.o. at bedtime. 21. Insulin glargine 10 units subcutaneous at bedtime. 22. Insulin lispro 5 units subcutaneous with meals, hold if the patient eats less than half of meal, hold for blood sugar less than 150. 23. Augmentin 500 mg p.o. b.i.d. x8 doses. New medications at discharge: 1. Augmentin. 2. Insulin lispro. Medications discontinued on discharge: Insulin glargine 35 units subcutaneous daily. HOSPITAL COURSE: This is a brief summary of the patient's presentation. For more details, please see the history and physical from Keesha Chisholm NP on 06/05. In brief, the patient is a 73-year-old male with past medical history significant for severe dementia, diabetes mellitus type 2, multiple PEs, who presents to the emergency department after he was sent off from [facility] due to severe hypoglycemia of unclear etiology. The patient is having episode of hypoglycemia when he was severely disoriented, was attempted to get orange juice, which he appeared to aspirate on. He was sent to the emergency department where his laboratory showed elevated white blood cell count and blood glucose of 31, possibility of a urinary tract infection, positive bacteria , leukocyte esterase. The patient was admitted to the ICU, started on D10W with q.1 fingersticks, subsequently that will be tapered down to a.c., h.s. fingersticks. The patient's white blood cell count resolved. The patient's blood sugars remained within normal range to elevated throughout the rest of his hospitalization on sliding scale insulin and Lantus 10 units subcutaneous nightly. This is a decrease from 45 units subcutaneous daily at [facility]. The patient was started on Zosyn for possible aspiration. The patient developed some diarrhea while in the hospital which resolved spontaneously, had negative C. diff test. The patient showed no signs of dehydration though his torsemide was decreased due to his diarrhea. The patient showed no signs of fluid overload although he has had significant lower extremity edema on his day of discharge. The patient was stable enough for discharge back to [facility] on 06/09/19. PHYSICAL EXAMINATION ON DAY OF DISCHARGE: General: The patient is a 73-year- old male who appears to be sitting in the bed in no acute distress. The patient yells out intermittently, unable to know why; this is the patient's base -line. Vital signs: At the time of discharge, temperature 98.2, pulse rate 90 , respiratory rate 16, oxygen saturation 95% room air, blood pressure 130/53. HEENT: Head normocephalic, atraumatic. Sclerae anicteric. No conjunctival injection. Nasal mucosa moist. No pharyngeal erythema, discharge or exudate. Neck: Supple. Nontender. No lymphadenopathy. No carotid bruits. No JVD. Cardiac: Regular rate and rhythm. No clicks, murmurs, gallops or rubs. Pulses are 2+ in dorsalis pedis, posterior tibialis, and radial areas. 2+ bilateral lower extremity edema. Respiratory: No wheezes or rhonchi. Good air exchange bilaterally. Abdomen: Soft, nontender, nondistended. Bowel sounds normoactive in all 4 quadrants. No hepatosplenomegaly. No abdominal bruits auscultated. No hepatojugular reflux. Neuro: Alert, oriented only to self. No focal deficits. Psychiatric: Flat affect. Occasionally screaming out into the hallway. DISCHARGE PLAN BY PROBLEM: 1. Hypoglycemia. The patient's hypoglycemia does not have a clear cause except that he was on a large amount of insulin. His eating pattern is somewhat altered, likely due to infection. The patient currently has had normal blood sugars on 10 units of glargine nightly and sliding scale insulin. The patient will be sent back to [facility] on the same 10 units and then 5 units with meals, decreased from his previous 12 units with meals. The patient' s most recent hemoglobin A1c was 7. This is likely too aggressive target given the patient's very limited life expectancy, having his residency being a senior living and his dementia. We would recommend prioritizing avoidance of hypoglycemia strongly over strict blood glucose control for this patient. Given the patient's comfort care, we will defer ongoing insulin adjustments to the patient's facility physician. The patient should have fingersticks a.c., h.s. daily at least for 1 weeks. 2. Aspiration pneumonitis versus pneumonia. The patient was started on Zosyn for this. While in the hospital, he improved greatly though the patient was never hypoxic and no acute cardiopulmonary disease chest x-ray. The patient will be finished on a 7-day course of Zosyn/Augmentin. The patient's lung exam is clear today. 3. Heart failure, unknown ejection fraction. The patient will be continued torsemide daily. The patient appears somewhat fluid overloaded, though he is having no respiratory symptoms. This is likely related to his torsemide being decreased while he was in the hospital. The patient will be started on his home dose of torsemide and should have his fluid status reassessed periodically while in the senior living. 4. Dementia. Continue the patient's Risperdal, divalproex and Wellbutrin. The patient does have behaviors which have been mildly controlled with medications for years. The patient is on comfort measures only at the senior living generally given his advanced dementia. 5. History of DVTs, PEs, factor V Leiden. Continue the patient's Xarelto. The patient's IVC filter in place. 6. Antibiotic-associated diarrhea, resolved. If the patient has recurrent diarrhea, this may be treated with Imodium if needed. The patient had a negative C. diff test while in the hospital. [place] [facility] [place] Stable. TIME SPENT: Approximately 60 minutes was spent on this patient, 30 of which was spent [id number] with the patient and his family obtaining history and physical and discussing treatment and plan. CECILE DISLA [id number]/[id number] #: [id number] SHAGUFTA
[2019-06-09] MEDS: Rivaroxaban TAB(*) 20 MG TAB PO SCH (17:58)
== END 2019-06-09 18:45 | DRG 637 ==
LOC: ED 12:25 → ICU 16:33 → MED 06-06 16:20
PROVIDERS: ADMIT Internal Medicine; ATTEND Internal Medicine
DX: E11.649 Type 2 diabetes mellitus with hypoglycemia without coma (principal); J69.0 Pneumonitis due to inhalation of food and vomit; D68.51 Activated protein C resistance; N39.0 Urinary tract infection, site not specified; Z68.41 Body mass index [BMI] 40.0-44.9, adult; I50.32 Chronic diastolic (congestive) heart failure; K52.1 Toxic gastroenteritis and colitis; I11.0 Hypertensive heart disease with heart failure; F31.9 Bipolar disorder, unspecified; E66.9 Obesity, unspecified; Z66 Do not resuscitate; G30.9 Alzheimer's disease, unspecified; F02.80 Dementia in other diseases classified elsewhere, unspecified severity, without behavioral disturbance, psychotic disturbance, mood disturbance, and anxiety; F41.9 Anxiety disorder, unspecified; M19.90 Unspecified osteoarthritis, unspecified site; B95.2 Enterococcus as the cause of diseases classified elsewhere; T36.95XA Adverse effect of unspecified systemic antibiotic, initial encounter; Y92.239 Unspecified place in hospital as the place of occurrence of the external cause; Z86.711 Personal history of pulmonary embolism; Z95.828 Presence of other vascular implants and grafts; Z85.46 Personal history of malignant neoplasm of prostate; Z92.21 Personal history of antineoplastic chemotherapy; Z88.1 Allergy status to other antibiotic agents; Z88.8 Allergy status to other drugs, medicaments and biological substances; Z91.018 Allergy to other foods; Z92.3 Personal history of irradiation; Z86.718 Personal history of other venous thrombosis and embolism; Z79.4 Long term (current) use of insulin; Z79.01 Long term (current) use of anticoagulants
CPT/HCPCS: 36415; 70450; 71046; 80048; 80053; 81003; 81015; 82140; 82550; 82803; 82947; 83605; 83735; 84443; 84484; 85025; 85027; 85730; 87077; 87086; 87493; 87641; 93005; 96365; 96367; 99285; A9270-GY; J1644; J1940; J2543; J3490

== ENCOUNTER 2019-12-19 01:11 | Emergency (ER) | payer MEDICARE, MEDICAID ==
[2019-12-19] MEDS ORDERED: Rivaroxaban TAB(*) 10 MG PO ONE (01:34)
[2019-12-19 01:53] LABS: Hematocrit 32 % (42-52); Hemoglobin 10.7 g/dL (14.0-18.0); Mean Corpuscular HGB Conc 33 g/dL (31-36); Mean Corpuscular Hemoglobin 32 pg (27-31); Mean Corpuscular Volume 97 fL (80-94); Mean Platelet Volume 7.9 fL (7.4-10.4); Platelet Count 359 10^3/uL (150-450); Red Blood Count 3.33 10^6 /uL (4.18-5.48); Red Cell Distribution Width 15 % (10-15); White Blood Count 9.3 10^3/uL (3.5-10.8)
[2019-12-19] MEDS ORDERED: Rivaroxaban TAB(*) 20 MG TAB PO ONE (02:00)
[2019-12-19 02:09] LABS: Albumin 2.5 g/dL (3.2-5.2); Albumin/Globulin Ratio 0.8 (1-3); BUN/Creatinine Ratio 15.9 (8-20); C Reactive Protein 112.36 mg/L (<8.01); Calcium 8.2 mg/dL (8.6-10.3); EGFR African American 76.8 (>60); EGFR Non-African American 63.4 (>60); Globulin 3.3 g/dL (2-4); Potassium 4.8 mmol/L (3.5-5.0); Total Bilirubin 0.2 mg/dL (0.2-1.0); Total Protein 5.8 g/dL (6.4-8.9)
[2019-12-19 02:14] LABS: ABS Basophils 0.1 10^3/ul (0-0.2); ABS Eosinophils 0.3 10^3/ul (0-0.6); ABS Monocytes 1.1 10^3/ul (0-0.8); ABS Neutrophils 6.1 10^3/ul (1.5-7.7); Eosinophil % 3.2 %; Lymphocyte % 20.5 %
[2019-12-19] MEDS ORDERED: Insulin LISPRO* 1 UNITS UNIT SUBCUT ONE (03:14)
[2019-12-19] MEDS ORDERED: Dextrose 50% Syringe 50 ML* 25 GM/50 ML SYRINGE IV PUSH PRN (03:14)
--- NOTE | 2019-12-19 03:34 | ED ---
Lower Extremity - HPI Summary HPI Summary: 74 year old presenting to [facility] via EMS with a chief complaint of right femoral vein DVT. Patient has a lot of sores on both lower extremities per nurse. Patient has a PMHx of dementia and PE. Patient is a level 5 caveat secondary to dementia. Home Medications Medication Instructions Recorded Confirmed Type Acetaminophen TAB* [Tylenol TAB*] 650 mg PO Q4H PRN 04/23/13 06/05/19 History Bisacodyl 10 mg SUPP [Dulcolax 10 mg IN DAILY PRN 12/22/14 06/05/19 History Supp*] Bupropion XL* [Wellbutrin XL *] 150 mg PO DAILY 12/22/14 06/05/19 History Acetaminophen [Acetaminophen Extra 1,000 mg PO BID PRN 10/15/18 06/05/19 History Strength] Cholecalciferol (Vitamin D3) 2,000 unit PO DAILY 10/15/18 06/05/19 History [Vitamin D3] Lactase Enzyme (NF) [Lactaid Fast 9,000 unit PO QAM 10/15/18 06/05/19 History Act (NF)] Lidocaine [Aspercreme Lidocaine] 4 % TOPICAL DAILY 10/15/18 06/05/19 History Magnesium Hydroxide LIQ* [Milk of 30 ml PO DAILY PRN 10/15/18 06/05/19 History Magnesia LIQ*] Potassium Chlor TAB* [Potassium 20 meq PO DAILY 10/15/18 06/05/19 History Chlor TAB 20 MEQ*] Rivaroxaban TAB(*) [Xarelto 20 mg] 20 mg PO QPM 10/15/18 06/05/19 History Selenium Sulfide [Anti-Dandruff] 1 % TOPICAL TH 10/15/18 06/05/19 History Sennosides/Docusate Sodium 2 each PO DAILY PRN 10/15/18 06/05/19 History [Senna-Docusate Sodium Tablet] risperiDONE TAB* [Risperdal*] 1 mg PO BID 10/15/18 06/05/19 History Pregabalin 25 mg CAP (*) [Lyrica 25 mg PO BEDTIME 10/16/18 06/05/19 History 25 mg CAP (*)] Torsemide TAB* [Demadex 20 MG*] 40 mg PO DAILY #60 tab 10/21/18 06/05/[address] TAB(*) [Depakote DR 500 mg PO DAILY 06/05/19 06/05/19 History TAB(*)] Divalproex DR TAB(*) [Depakote DR 750 mg PO IN AM AND AT BEDTIME 06/05/19 History TAB(*)] Insulin GLARGINE(*) [Lantus 100 10 units SUBCUT BEDTIME 06/05/19 06/05/19 History units/ml 10 ml VIAL (*)] Metoprolol Succinate XL TAB* 12.5 mg PO BEDTIME 06/05/19 06/05/19 History [Toprol XL TAB*] Minerin Cream* [Eucerin Cream*] 1 applic TOPICAL BID 06/05/19 06/05/19 History Pneumococcal 23-Lynette P-Sac Vac 25 mcg INJ ONCE 06/05/19 06/05/19 History [Pneumovax 23] traMADol TAB* [Ultram*] 25 mg PO BID 06/05/19 06/05/19 History Amoxicillin/Clavulanate TAB* 500 mg PO BID #8 tab 06/09/19 Rx [Augmentin TAB 500 mg*] Insulin LISPRO* [HumaLOG 100 5 units SUBCUT AC #1 unit 06/09/19 Rx units/ml 3 ml VIAL *] Rivaroxaban TAB(*) [Xarelto 20 mg] 20 mg PO DAILY #30 tab 12/19/19 Rx - History of Current Complaint Chief Complaint: EDExtremityLower Stated Complaint: R DVT PER EMS Time Seen by Provider: 12/19/19 01:19 Hx Obtained From: EMS, Other: - Nursing facility. Hx From Patient Unobtainable Due To: Dementia Pain Intensity: 0 Pain Scale Used: 0-10 Numeric - Allergies/Home Medications Allergies/Adverse Reactions: Allergies Allergy/AdvReac Type Severity Reaction Status Date / Time banana Allergy Unknown Verified 12/19/19 01:17 Reaction Details carbamazepine [From Tegretol] Allergy Unknown Verified 12/19/19 01:17 Reaction Details erythromycin base Allergy Unknown Verified 12/19/19 01:17 Reaction Details gabapentin [From Neurontin] Allergy Unknown Verified 12/19/19 01:17 Reaction Details gemfibrozil Allergy Unknown Verified 12/19/19 01:17 Reaction Details lactose Allergy Unknown Verified 12/19/19 01:17 Reaction Details levofloxacin [From Levaquin] Allergy Unknown Verified 12/19/19 01:17 Reaction Details memantine [From Namenda] Allergy Unknown Verified 12/19/19 01:17 Reaction Details terazosin Allergy Unknown Verified 12/19/19 01:17 Reaction Details topiramate [From Topamax] Allergy Unknown Verified 12/19/19 01:17 Reaction Details Home Medications: Home Medications Acetaminophen TAB* [Tylenol TAB*] 650 mg PO Q4H PRN 04/23/13 [History Confirmed 06/05/19] Bisacodyl 10 mg SUPP [Dulcolax Supp*] 10 mg IN DAILY PRN 12/22/14 [History Confirmed 06/05/19] Bupropion XL* [Wellbutrin XL *] 150 mg PO DAILY 12/22/14 [History Confirmed 06/14] Acetaminophen [Acetaminophen Extra Strength] 1,000 mg PO BID PRN 10/15/18 [ History Confirmed 06/05/19] Cholecalciferol (Vitamin D3) [Vitamin D3] 2,000 unit PO DAILY 10/15/18 [History Confirmed 06/05/19] Lactase Enzyme (NF) [Lactaid Fast Act (NF)] 9,000 unit PO QAM 10/15/18 [History Confirmed 06/05/19] Lidocaine [Aspercreme Lidocaine] 4 % TOPICAL DAILY 10/15/18 [History Confirmed 06/05/19] Magnesium Hydroxide LIQ* [Milk of Magnesia LIQ*] 30 ml PO DAILY PRN 10/15/18 [ History Confirmed 06/05/19] Potassium Chlor TAB* [Potassium Chlor TAB 20 MEQ*] 20 meq PO DAILY 10/15/18 [ History Confirmed 06/05/19] Rivaroxaban TAB(*) [Xarelto 20 mg] 20 mg PO QPM 10/15/18 [History Confirmed 06/14] Selenium Sulfide [Anti-Dandruff] 1 % TOPICAL TH 10/15/18 [History Confirmed 06/14] Sennosides/Docusate Sodium [Senna-Docusate Sodium Tablet] 2 each PO DAILY PRN [History Confirmed 06/05/19] risperiDONE TAB* [Risperdal*] 1 mg PO BID 10/15/18 [History Confirmed 06/05/19] Pregabalin 25 mg CAP (*) [Lyrica 25 mg CAP (*)] 25 mg PO BEDTIME 10/16/18 [ History Confirmed 06/05/19] Torsemide TAB* [Demadex 20 MG*] 40 mg PO DAILY #60 tab 10/21/18 [Rx Confirmed ] Divalproex DR TAB(*) [Depakote DR TAB(*)] 500 mg PO DAILY 06/05/19 [History Confirmed 06/05/19] Divalproex DR TAB(*) [Depakote DR TAB(*)] 750 mg PO IN AM AND AT BEDTIME [History Confirmed 06/05/19] Insulin GLARGINE(*) [Lantus 100 units/ml 10 ml VIAL (*)] 10 units SUBCUT BEDTIME 06/05/19 [History Confirmed 06/05/19] Metoprolol Succinate XL TAB* [Toprol XL TAB*] 12.5 mg PO BEDTIME 06/05/19 [ History Confirmed 06/05/19] Minerin Cream* [Eucerin Cream*] 1 applic TOPICAL BID 06/05/19 [History Confirmed 06/05/19] Pneumococcal 23-Lynette P-Sac Vac [Pneumovax 23] 25 mcg INJ ONCE 06/05/19 [History Confirmed 06/05/19] traMADol TAB* [Ultram*] 25 mg PO BID 06/05/19 [History Confirmed 06/05/19] Amoxicillin/Clavulanate TAB* [Augmentin TAB 500 mg*] 500 mg PO BID #8 tab [Rx] Insulin LISPRO* [HumaLOG 100 units/ml 3 ml VIAL *] 5 units SUBCUT AC #1 unit [Rx] Rivaroxaban TAB(*) [Xarelto 20 mg] 20 mg PO DAILY #30 tab 12/19/19 [Rx] PMH/Surg Hx/FS Hx/Imm Hx Endocrine/Hematology History: Reports: Hx Anticoagulant Therapy - coumadin 5mg, Hx Diabetes - type 2 Cardiovascular History: Reports: Hx Congestive Heart Failure - hx of, Hx Hypertension Denies: Hx Hypercholesterolemia Respiratory History: Reports: Hx Asthma, Hx Pulmonary Embolism, Other Respiratory Problems/Disorders - PT. HAS A KNOWN FB LODGED IN LEFT LUNG AREA FROM PRIOR SURG History: Reports: Hx Renal Disease - current hematuria, Other Problems/ Disorders - Prostate cancer/urinary retention Musculoskeletal History: Reports: Hx Arthritis - osteo, Hx Back Problems - DJ D Sensory History: Reports: Hx Hearing Problem, Other Sensory Impairments Denies: Hx Contacts or Glasses - None in room nor is pt wearing glasses., Hx Hearing Aid - Pt not wearing hearing aides nor none found in pt room Opthamlomology History: Reports: Other Sensory Impairments Denies: Hx Contacts or Glasses - None in room nor is pt wearing glasses. Neurological History: Reports: Hx Dementia - alzheimers, Hx Seizures, Other Neuro Impairments/Disorders Psychiatric History: Reports: Hx Anxiety, Hx Depression, Hx Bipolar Disorder Denies: Hx Eating Disorder, Hx of Violent Episodes Against Others - Cancer History Cancer Type, Location and Year: PROSTATE [place] Hx Chemotherapy: No Hx Radiation Therapy: Yes - Surgical History Surgery Procedure, Year, and Place: LEFT KNEE REPLACED/BYPASS GRAFT/? [place] Hx Anesthesia Reactions: No - Immunization History Date of Tetanus Vaccine: Unk Date of Influenza Vaccine: Unk Infectious Disease History: No Infectious Disease History: Denies: Traveled Outside the [place] in Last 30 Days - Family History Known Family History: Positive: Other - No - Malignant Hypothermia - Social History Alcohol Use: None Hx Substance Use: No Substance Use Type: Reports: None Hx Tobacco Use: No Smoking Status (MU): Never Smoked Tobacco Review of Systems - ROS Summary Review of Systems Summary: Patient is a level 5 caveat secondary to dementia. Positive: Other - DVT. All Other Systems Reviewed And Are Negative: No Physical Exam - Summary Physical Exam Summary: Patient is a level 5 caveat secondary to dementia. Appearance: Well-appearing, nonverbal, lying in stretcher. Skin: Warm, dry, no obvious rash Eyes: sclera anicteric, no conjunctival pallor HENT: mucous membranes moist, pharynx appears normal Neck: Supple, nontender Respiratory: Clear to auscultation, no signs of respiratory distress Cardiovascular: Graduated 2/6 systolic murmur, otherwise normal. Abdomen: Soft, nontender, normal active bowel sounds present Musculoskeletal: No depreciable difference in the size of the legs, no erythema or swelling in right leg, skin lesions on distal foot and toes, some bullous lesions, small amount of dry gangrene, no sign of cellulitis. Neurological: Nonverbal, noted to move arms and legs without asymmetry, no facial droop, unable to engage in speech or cognition. Psychiatric: Unable to assess secondary to dementia Triage Information Reviewed: Yes Vital Signs On Initial Exam: Initial Vitals Temp Pulse Resp BP Pulse Ox 98.5 F 87 18 136/96 95 12/19/19 01:15 12/19/19 01:15 12/19/19 01:15 12/19/19 01:15 12/19/19 01:15 Vital Signs Reviewed: Yes Completion Of Physical Exam Limited Due To: Dementia, Level 5 Procedures - Sedation Patient Received Moderate/Deep Sedation with Procedure: No Diagnostics - Vital Signs Vital Signs Temp Pulse Resp BP Pulse Ox 12/19/19 03:12 76 15 106/53 96 12/19/19 03:00 77 15 96 12/19/19 02:42 86 21 134/66 96 12/19/19 02:35 84 14 96 12/19/19 02:00 81 14 93 12/19/19 01:49 81 16 93 12/19/19 01:15 98.5 F 87 18 136/96 95 - Laboratory Lab Results: Lab Results 12/19/19 12/19/19 Range/Units 01:45 01:45 WBC 9.3 (3.5-10.8) 10^3/uL RBC 3.33 L (4.18-5.48) 10^6 /uL Hgb 10.7 L (14.0-18.0) g/dL Hct 32 L (42-52) % MCV 97 H (80-94) fL MCH 32 H (27-31) pg MCHC 33 (31-36) g/dL RDW 15 (10-15) % Plt Count 359 (150-450) 10^3/uL MPV 7.9 (7.4-10.4) fL Neut % (Auto) 63.5 % Lymph % (Auto) 20.5 % [place] % (Auto) 11.7 % Eos % (Auto) 3.2 % Baso % (Auto) 1.1 % Absolute Neuts (auto) 6.1 (1.5-7.7) 10^3/ul Absolute Lymphs (auto) 2.0 (1.0-4.8) 10^3/ul Absolute Monos (auto) 1.1 H (0-0.8) 10^3/ul Absolute Eos (auto) 0.3 (0-0.6) 10^3/ul Absolute Basos (auto) 0.1 (0-0.2) 10^3/ul Absolute Nucleated RBC 0.0 10^3/ul Nucleated RBC % 0.0 Sodium 133 L (135-145) mmol/L Potassium 4.8 (3.5-5.0) mmol/L Chloride 98 L (101-111) mmol/L Carbon Dioxide 26 (22-32) mmol/L Anion Gap 9 (2-11) mmol/L BUN 18 (6-24) mg/dL Creatinine 1.13 (0.67-1.17) mg/dL Est GFR ( Amer) 76.8 (>60) Est GFR (Non-Af Amer) 63.4 (>60) BUN/Creatinine Ratio 15.9 (8-20) Glucose 434 H (70-100) mg/dL Calcium 8.2 L (8.6-10.3) mg/dL Total Bilirubin 0.20 (0.2-1.0) mg/dL AST 11 L (13-39) U/L ALT 6 L (7-52) U/L Alkaline Phosphatase 64 (34-104) U/L C-Reactive Protein 112.36 H (<8.01) mg/L Total Protein 5.8 L (6.4-8.9) g/dL Albumin 2.5 L (3.2-5.2) g/dL Globulin 3.3 (2-4) g/dL Albumin/Globulin Ratio 0.8 L (1-3) Result Diagrams: 12/19/19 01:45 12/19/19 01:45 Lab Statement: Any lab studies that have been ordered have been reviewed, and results considered in the medical decision making process. Re-Evaluation - Re-Evaluation First Eval Re-Evaluation Time: 01:29 Comment: Dr. Grier spoke to the staff at [facility] for more information on the patients PMHx and symptoms. Second Eval Re-Evaluation Time: 01:30 Comment: Dr. Grier discussed the care of the patient with Dr. Sharif. Lower Extremity Course/Dx - Course Course Of Treatment: 74 year old presenting to [facility] via EMS with a chief complaint of right femoral vein DVT. Patient has a lot of sores on both lower extremities per nurse. Patient has a PMHx of dementia and PE. Patients physical exam is normal other than the following: chronic appearing, nonverbal, lying in stretcher, graduated 2/6 systolic murmur, no depreciable difference in the size of the legs, no erythema or swelling in right leg, sin lesions on distal foot and toes, some bullous lesions, small amount of dry gangrene, no sign of cellulitis, nonverbal, noted to move arms and legs without asymmetry, no facial droop, unable to engage in speech or cognition. Patient is a level 5 caveat secondary to dementia. Patients bloodwork shows 3.33 RBC, 10.7 Hgb, 32 Hct, 97 MCV, 32 MCH, 1.1 absolute monos, 133 sodium, 98 chloride, 434 glucose, 8.2 calcium, 11 AST, 6 ALT, 112. 36 c-reactive protein, 5.8 total protein, 2.5 albumin, 0.8 albumin/globulin ratio. Patient received 5 units of insulin and 20 mg of rivaroxaban. At 0129, Dr. Grier spoke to the staff at [facility] for more information on the patients PMHx and symptoms. At 0130, Dr. Grier discussed the care of the patient with Dr. Sharif. Patient was discharged to his home in good condition and was instructed to reach out to his provider for rivaroxaban. - Diagnoses Provider Diagnoses: DVT (deep venous thrombosis) - Physician Notifications Discussed Care Of Patient With: Shanna Sharif Time Discussed With Above Provider: 01:30 Instructed by Provider To: Other - Dr. Grier discussed the care of the patient with Dr. Sharif. - Critical Care Time Critical Care Statement: Critical care time is provided exclusive of any time spent performing procedures. Discharge ED - Sign-Out/Discharge Documenting (check all that apply): Patient Departure - Discharge Plan Condition: Good Disposition: HOME Prescriptions: Rivaroxaban TAB(*) [Xarelto 20 mg] 20 mg PO DAILY #30 tab Patient Education Materials: Deep Vein Thrombosis (ED) Referrals: Alicia Sarkar NP [Primary Care Provider] - 3 Days Additional Instructions: The rivaroxaban will be due again Sunday evening, and will need to be ordered by your provider. - Billing Disposition and Condition Condition: GOOD Disposition: Home - Attestation Statements Document Initiated by Scribe: Yes Documenting Scribe: Eliana Ruiz and Brigido Lainez Provider For Whom Scrcolee is Documenting (Include Credential): Michel Grier MD Scribe Attestation: IEliana and Brigido Lainez, scribed for Michel Grier MD on 12/20/19 at 0103. Scribe Documentation Reviewed: Yes Provider Attestation: The documentation as recorded by the romulo, Eliana Ruiz and Brigido Lainez accurately reflects the service I personally performed and the decisions made by me, Michel Grier MD Status of Scribe Document: Viewed
[2019-12-19 07:50] VITALS: BP 134/73
== END 2019-12-19 07:46 | disposition home or self-care (01) ==
LOC: ED 01:11
DX: I82.411 Acute embolism and thrombosis of right femoral vein (principal); Z86.711 Personal history of pulmonary embolism; Z79.01 Long term (current) use of anticoagulants; E11.9 Type 2 diabetes mellitus without complications; Z79.4 Long term (current) use of insulin; I50.9 Heart failure, unspecified; I10 Essential (primary) hypertension; E78.00 Pure hypercholesterolemia, unspecified; J45.909 Unspecified asthma, uncomplicated; G30.9 Alzheimer's disease, unspecified; F02.80 Dementia in other diseases classified elsewhere, unspecified severity, without behavioral disturbance, psychotic disturbance, mood disturbance, and anxiety; F32.9 Major depressive disorder, single episode, unspecified; C61 Malignant neoplasm of prostate
CPT/HCPCS: 36415; 80053; 85025; 86140; 96374; 99283; A9270-GY